=== PATIENT | male | born 1940 | race Caucasian/White ===

== ENCOUNTER 2017-01-30 21:12 | Inpatient (IN) | payer MEDICARE, BC ==
[~2017-01-30] VITALS: Ht 172.7 cm; Wt 82.3 kg
[~2017-01-30 21:12] MED LIST: LEVO500T3 PO
[2017-01-30] MEDS ORDERED: PROPOFOL 1000 MG/100 ML INJ 100 ML ONE (21:28)
[2017-01-30 21:30] VITALS: O2SAT 85
[2017-01-30] MEDS ORDERED: PROPOFOL 1000 MG/100 ML INJ 100 ML IV SCH (21:30)
[2017-01-30] MEDS ORDERED: SODIUM CHLOR 0.9% 1000 ML INJ 1,000 ML IV SCH (21:30)
[2017-01-30] MEDS ORDERED: LEVO75TA3 PO (21:34)
[2017-01-30] MEDS ORDERED: LORA-373 PO ×2 (21:34→21:35)
[2017-01-30] MEDS ORDERED: LAMO200T PO (21:34)
[2017-01-30 21:36] VITALS: BP 144/89; PULSE 82; RESP 18; TEMP 97.5; O2SAT 97
[2017-01-30] MEDS ORDERED: HYDR-755 PO (21:38)
[2017-01-30] MEDS ORDERED: ASPI81CH37 CHEW (21:38)
[2017-01-30] MEDS ORDERED: LOVA20TA PO (21:38)
[2017-01-30] MEDS ORDERED: TRIH2 PO (21:39)
[2017-01-30] MEDS ORDERED: MEMA1TAB2 PO (21:44)
[2017-01-30] MEDS ORDERED: CITA20TA4 PO (21:44)
[2017-01-30] MEDS ORDERED: RANI150C PO (21:44)
[2017-01-30] MEDS ORDERED: BENZ1TAB PO (21:44)
[2017-01-30] MEDS ORDERED: SULF1TAB23 PO (21:45)
--- NOTE | 2017-01-30 21:48 | PD ---
HPI Chief Complaint: Respiratory Distress Time Seen by Provider: 21:26 Travel History International Travel<30 days: No Contact w/Intl Traveler<30days: No Traveled to known affect area: No History of Present Illness HPI This 76-year-old male is brought from home by the back. His called for paramedics because he was hard to waken up and he seemed confused at home. He is bedbound. He has a history of multiple strokes. He has had cardiac bypass surgery. He says he has not been eating well the last couple of days. She had to force him to eat tonight. He took a nap and when she went to wake him he was hard to arouse. She called for paramedics. Paramedics reported that he was quite lethargic and had a Mildred Coma Scale 3. They initiated assisted ventilations en route to the hospital. His is here and she has power of energy attorney. Paramedics report he had a right gaze preference when they picked him up. He has a history of dementia and Parkinson's disease. The family says he has shell shock from [place] [facility] Social History Alcohol Use: No Tobacco Use: No Substance Use: No Allergies-Medications (Allergen,Severity, Reaction): Coded Allergies: No Known Allergies (Unverified , 01/30/17) Reported Meds & Prescriptions Reported Meds & Active Scripts Active Reported Sulfamethoxazole-Trimethoprim 800-160 Mg Tab 1 Tab PO BID Benztropine (Benztropine Mesylate) 1 Mg Tab 1 Mg PO TID Ranitidine (Ranitidine HCl) 150 Mg Cap 150 Mg PO DAILY Citalopram (Citalopram Hydrobromide) 20 Mg Tab 20 Mg PO DAILY Memantine 10 Mg Tab 10 Mg PO DAILY Trihexyphenidyl (Trihexyphenidyl HCl) 2 Mg Tab 4 Mg PO BID Hydroxyzine HCl 10 Mg Tab 10 Mg PO HS PRN Aspirin Low Dose (Aspirin) 81 Mg Chew 81 Mg CHEW DAILY Lovastatin 20 Mg Tab 10 Mg PO DAILY Lorazepam 0.5 Mg Tab 0.15 Mg PO HS PRN Lorazepam 0.5 Mg Tab 0.1 Mg PO BID PRN Levothyroxine (Levothyroxine Sodium) 75 Mcg Tab 75 Mcg PO DAILY Lamotrigine 200 Mg Tab 200 Mg PO BID Review of Systems ROS Limitations: Intubated, Altered Mental Status, Poor Historian Physical Exam Narrative GENERAL: Thin cachectic male SKIN: Warm and dry. HEAD: Atraumatic. Normocephalic. EYES: Pupils equal and round. No scleral icterus. No injection or drainage. ENT: No nasal bleeding or discharge. Mucous membranes pink and moist. NECK: Trachea midline. No JVD. CARDIOVASCULAR: Regular rate and rhythm. No murmur appreciated. Median sternotomy is well-healed RESPIRATORY: No accessory muscle use. Clear to auscultation. Breath sounds with scattered rhonchi bilaterally GASTROINTESTINAL: Abdomen soft, non-tender, nondistended. Hepatic and splenic margins not palpable. MUSCULOSKELETAL: No obvious deformities. No clubbing. No cyanosis. No edema. NEUROLOGICAL: Unresponsive. Minimal response to painful stimuli PSYCHIATRIC: Not testable Data Data Last Documented VS Vital Signs Date Time Temp Pulse Resp B/P Pulse Ox O2 Delivery O2 Flow Rate FiO2 01/30/17 23:20 79 14 125/84 97 Ventilator 50 01/30/17 21:36 97.5 Orders Propofol 1000 Mg/100 Ml Inj (Diprivan 10 (01/30/17 21:28) Electrocardiogram (01/30/17 21:) Complete Blood Count With Diff (01/30/17 21:26) Comprehensive Metabolic Panel (01/30/17 21:) Troponin I (01/30/17 21:) B-Type Natriuretic Peptide (01/30/17:) Prothrombin Time / Inr (Pt) (01/30/17:) Act Partial Throm Time (Ptt) (01/30/17 21:26) Blood Culture (01/30/17:) Urinalysis - C+S If Indicated (01/30/17:) Magnesium (Mg) (01/30/17 21:) Thyroid Stimulating Hormone (01/30/17 21:) Influenzae A/B Antigen (01/30/17 21:) Chest, Single Ap (01/30/17 21:26) Propofol 1000 Mg/100 Ml Inj (Diprivan 10 (01/30/17 21:30) ^ Infusion (01/30/17 21:26) RASS (01/30/17 21:26) Neurological Rass Scale CHARLENE.Q2H (01/30/17 21:26) Sodium Chlor 0.9% 1000 Ml Inj (Ns 1000 M (01/30/17 21:30) Ct Brain W/O Iv Contrast(Rout) (01/30/17 21:36) Arterial Blood Gas (Abg) (01/30/17 21:50) Urinary Catheter Insert/Apply (01/30/17 22:36) Ng Gastric Tube Insert/Monitor (01/30/17 22:36) Urine Culture (01/30/17 22:15) Ceftriaxone Inj (Rocephin Inj) (01/30/17 23:45) Labs Laboratory Tests Test 01/30/17 01/30/17 01/30/17 21:50 22:00 22:15 Blood Gas Puncture Site LT FEMORAL Blood Gas Patient Temperature 98.6 Blood Gas HCO3 18 mmol/L Blood Gas Base Excess -6.9 mmol/L Blood Gas Oxygen Saturation 98 % Arterial Blood pH 7.34 Arterial Blood Partial 34 mmHG Pressure CO2 Arterial Blood Partial 336 mmHG Pressure O2 Arterial Blood Oxygen Content 17.9 Vol % Arterial Blood 0.9 % Carboxyhemoglobin Arterial Blood Methemoglobin 1.3 % Blood Gas Hemoglobin 12.5 G/DL Oxygen Delivery Device VENTILATOR Blood Gas Ventilator Setting AC/14/500/5PEEP Blood Gas Inspired Oxygen 100 % White Blood Count 11.3 TH/MM3 Red Blood Count 4.19 MIL/MM3 Hemoglobin 12.8 GM/DL Hematocrit 38.3 % Mean Corpuscular Volume 91.5 FL Mean Corpuscular Hemoglobin 30.6 PG Mean Corpuscular Hemoglobin 33.4 % Concent Red Cell Distribution Width 12.9 % Platelet Count 176 TH/MM3 Mean Platelet Volume 9.1 FL Neutrophils (%) (Auto) 80.8 % Lymphocytes (%) (Auto) 7.9 % Monocytes (%) (Auto) 7.7 % Eosinophils (%) (Auto) 3.0 % Basophils (%) (Auto) 0.6 % Neutrophils # (Auto) 9.1 TH/MM3 Lymphocytes # (Auto) 0.9 TH/MM3 Monocytes # (Auto) 0.9 TH/MM3 Eosinophils # (Auto) 0.3 TH/MM3 Basophils # (Auto) 0.1 TH/MM3 CBC Comment DIFF FINAL Differential Comment Prothrombin Time 11.9 SEC Prothromb Time International 1.1 RATIO Ratio Activated Partial 29.2 SEC Thromboplast Time Sodium Level 155 MEQ/L Potassium Level 4.5 MEQ/L Chloride Level 124 MEQ/L Carbon Dioxide Level 21.7 MEQ/L Anion Gap 9 MEQ/L Blood Urea Nitrogen 69 MG/DL Creatinine 2.80 MG/DL Estimat Glomerular Filtration 22 ML/MIN Rate Random Glucose 113 MG/DL Calcium Level 8.6 MG/DL Magnesium Level 2.8 MG/DL Total Bilirubin 0.5 MG/DL Aspartate Amino Transf 43 U/L (AST/SGOT) Alanine Aminotransferase 32 U/L (ALT/SGPT) Alkaline Phosphatase 69 U/L Troponin I 0.07 NG/ML Total Protein 6.6 GM/DL Albumin 3.1 GM/DL Thyroid Stimulating Hormone 0.391 uIU/ML 3rd Gen Urine Collection Type CATH Urine Color YELLOW Urine Turbidity SLIGHT Urine pH 8.5 Urine Specific [place] 1.016 Urine Protein 30 mg/dL Urine Glucose (UA) NEG mg/dL Urine Ketones NEG mg/dL Urine Occult Blood MOD Urine Nitrite NEG Urine Bilirubin NEG Urine Leukocyte Esterase LARGE Urine WBC INNUM /hpf Urine Squamous Epithelial 0-2 /hpf Cells Urine Bacteria MANY /hpf Microscopic Urinalysis Comment CULTURE INDICATED MDM Medical Decision Making Medical Screen Exam Complete: Yes Emergency Medical Condition: Yes Medical Record Reviewed: Yes Differential Diagnosis Differential includes electrolyte imbalance, pneumonia, CVA Narrative Course Patient was having minimal amount respirations on arrival. Endotracheal intubation was performed on arrival. Chest x-ray shows good position of the endotracheal tube. The lungs are clear. His sodium is 155. Urine is 68 with creatinine 2.8. Urine does show innumerable white cells. CT scan of the brain shows atrophy Diagnosis Primary Impression: Hypernatremia Additional Impressions: Respiratory failure Qualified Code: J96.01 - Acute respiratory failure with hypoxia UTI (urinary tract infection) Qualified Code: N30.00 - Acute cystitis without hematuria Admitting Information Admitting Physician Requests: Admit Dmitriy Woo MD Jan 30, 2017 21:48
[2017-01-30 22:11] LABS: BLOOD GAS BASE EXCESS -6.9 mmol/L (-2-2); BLOOD GAS CARBOXYHEMOGLOBIN 0.9 % (0-4); BLOOD GAS HCO3 18 mmol/L (22-26); BLOOD GAS METHEMOGLOBIN 1.3 % (0-2); BLOOD GAS O2 HGB SATURATION 98 % (90-100); BLOOD GAS OXYGEN CONTENT 17.9 Vol % (12.0-20.0); BLOOD GAS PCO2 34 mmHG (38-42); BLOOD GAS PO2 336 mmHG (61-120); BLOOD GAS TOTAL HGB 12.5 G/DL (12.0-16.0); CRITICAL VALUE NO; FIO2 100 %; OXYGEN DEVICE VENTILATOR; TEMP CORR TO 98.6; VENT SETTINGS AC/14/500/5PEEP
[2017-01-30 22:12] LABS: DRAW SITE LT FEMORAL; NUMBER OF ARTERIAL PUNCTURES 1; STAT NO
[2017-01-30 22:15] VITALS: O2SAT 100
[2017-01-30 22:24] LABS: AUTOMATED NEUTROPHIL # 9.1 TH/MM3 (1.8-7.7); BASOPHIL # 0.1 TH/MM3 (0-0.2); BASOPHIL % 0.6 % (0.0-2.0); EOSINOPHIL # 0.3 TH/MM3 (0-0.4); HEMATOCRIT 38.3 % (39.0-51.0); LYMPH % 7.9 % (9.0-44.0); LYMPHOCYTE # 0.9 TH/MM3 (1.0-4.8); MEAN CELL VOLUME 91.5 FL (80.0-100.0); MEAN CORPUSCULAR HEMOGLOBIN 30.6 PG (27.0-34.0); MEAN CORPUSCULAR HGB CONC 33.4 % (32.0-36.0); MONO % 7.7 % (0.0-8.0); NEUT % 80.8 % (16.0-70.0); PLATELET COUNT 176 TH/MM3 (150-450); RED BLOOD COUNT 4.19 MIL/MM3 (4.50-5.90); RED CELL DISTRIBUTION WIDTH 12.9 % (11.6-17.2); WHITE BLOOD COUNT 11.3 TH/MM3 (4.0-11.0)
[2017-01-30 22:27] VITALS: BP 143/84; PULSE 78; RESP 14; O2SAT 97
--- NOTE | 2017-01-30 22:42 | RADHPO ---
EXAM DATE/TIME: 01/30/2017 22:04 [facility] COMPARISON: No previous studies available for comparison. INDICATIONS : Post intubation. MEDICAL HISTORY : Unobtainable SURGICAL HISTORY : Unobtainable ENCOUNTER: Initial ACUITY: 1 day PAIN SCORE: Non-responsive. LOCATION: Bilateral chest FINDINGS: No infiltrate, effusion or pneumothorax demonstrated. Heart size within normal limits. Patient is int ubated. Endotracheal tube tip is approximately 3 cm above the madina. Nonspecific gastric distention seen of the stomach. CONCLUSION: Appropriate position of the endotracheal tube. Lungs are clear. Stomach is distended. Gerald Perez MD on January 30, 2017 at 22:40 Board Certified Radiologist. This report was verified electronically.
[2017-01-30 22:55] LABS: HEMO FLAGS DIFF FINAL
[2017-01-30 22:57] LABS: CHLORIDE 124 MEQ/L (98-107); POTASSIUM 4.5 MEQ/L (3.5-5.1); SODIUM (NA) 155 MEQ/L (136-145)
[2017-01-30 23:00] VITALS: O2SAT 100
[2017-01-30 23:00] LABS: ANION GAP 9 MEQ/L (5-15); BICARBONATE 21.7 MEQ/L (21.0-32.0); MAGNESIUM 2.8 MG/DL (1.5-2.5)
[2017-01-30 23:01] LABS: BLOOD UREA NITROGEN 69 MG/DL (7-18)
[2017-01-30 23:02] LABS: APTT (PATIENT) 29.2 SEC (24.3-30.1); INTERNATIONAL NORMALIZED RATIO 1.1 RATIO; PROTHROMBIN TIME - PATIENT 11.9 SEC (9.8-11.6)
[2017-01-30 23:03] LABS: ALT (GPT) 32 U/L (12-78); AST (GOT) 43 U/L (15-37)
[2017-01-30 23:04] LABS: GLOMERULAR FILTRATION RATE 22 ML/MIN (>89)
[2017-01-30 23:05] LABS: TOTAL BILIRUBIN ADULT 0.5 MG/DL (0.2-1.0)
[2017-01-30 23:06] LABS: ALKALINE PHOSPHATASE 69 U/L (45-117)
[2017-01-30 23:07] LABS: BLOOD, URINE MOD (NEG); GLUCOSE,URINE NEG (NEG); KETONE, URINE NEG (NEG); NITRITE,URINE NEG (NEG); PH, URINE 8.5 (5.0-8.5)
[2017-01-30 23:20] VITALS: BP 125/84; PULSE 79; RESP 14; O2SAT 97
[2017-01-30 23:20] LABS: METHOD OF COLLECTION CATH; URINE COLOR YELLOW (YELLW/STRAW)
[2017-01-30 23:21] LABS: BACTERIA, URINE MANY /hpf; WBC, URINE INNUM /hpf (0-5)
[2017-01-30 23:22] LABS: COMMENT (UR) CULTURE INDICATED; CULTURE IF INDICATED CULTURE INDICATED; SQUAMOUS EPITHELIAL CELL URINE 0-2 /hpf (0-5)
--- NOTE | 2017-01-30 23:30 | RADHPO ---
EXAM DATE/TIME: 01/30/2017 22:56 [facility] COMPARISON: No previous studies available for comparison. INDICATIONS : Altered mental status. RADIATION DOSE: 69.5 CTDIvol (mGy) MEDICAL HISTORY : None SURGICAL HISTORY : None. ENCOUNTER: Initial ACUITY: 1 day PAIN SCALE: 0/10 LOCATION: cranial TECHNIQUE: Multiple contiguous axial images were obtained of the head. Using automated exposure control and adj ustment of the mA and/or kV according to patient size, radiation dose was kept as low as reasonably a chievable to obtain optimal diagnostic quality images. FINDINGS: CEREBRUM: The ventricles, sulci, and basal cisterns are prominent, characteristic of moderate severity central cortical atrophy. No evidence of midline shift, mass lesion, hemorrhage or acute infarction. No ext ra-axial fluid collections are seen. POSTERIOR FOSSA: The cerebellum and brainstem are intact. The 4th ventricle is midline. The cerebellopontine angle i s unremarkable. EXTRACRANIAL: The visualized portion of the orbits is intact. SKULL: The calvaria is intact. No evidence of skull fracture. CONCLUSION: Moderately severe atrophy. No acute findings. Ross Giron MD on January 30, 2017 at 23:27 Board Certified Radiologist. This report was verified electronically.
[2017-01-30] MEDS ORDERED: cefTRIAXone INJ 1,000 MG in SODIUM CHLORIDE 0.9% INJ 100 ML IV ONE (23:45)
[2017-01-31] VITALS (22 sets, daily range): BP systolic 107–142; BP diastolic 61–83; PULSE 59–84; RESP 12–29; TEMP 96.2–98.1; O2SAT 0–100
[2017-01-31] MEDS ORDERED: PROPOFOL 1000 MG/100 ML INJ 100 ML IV SCH (00:30)
[2017-01-31] MEDS ORDERED: SODIUM CHLORIDE 0.9% FLUSH 5 ML FLUSH IV FLUSH PRN (00:30)
[2017-01-31] MEDS ORDERED: BISACODYL EC 5 MG TABEC PO PRN (00:30)
[2017-01-31] MEDS ORDERED: ONDANSETRON HCL 4 MG/2 ML VIAL IV PRN (00:30)
[2017-01-31] MEDS ORDERED: ACETAMINOPHEN 325 MG TAB PO PRN (00:30)
[2017-01-31] MEDS ORDERED: CHLORHEXIDINE GLUCONATE 2 % 1 PACK (2 CLOTHS) TOP PRN (00:30)
[2017-01-31] MEDS ORDERED: MISCELLANEOUS NURSING INFORMATION XX SCH (00:30)
[2017-01-31] MEDS: LACTATED RINGER'S 1000 ML INJ 1,000 ML IV SCH ×3 (01:28→17:46)
[2017-01-31] MEDS: CEFEPIME INJ 2,000 MG in SODIUM CHLORIDE 0.9% INJ 100 ML IV SCH (01:28)
[2017-01-31] MEDS: RESP: ALBUTEROL 2.5 MG/IPRATROPIUM 0.5 MG NEB (SCH) INH ×4 (03:48→20:50)
[2017-01-31] MEDS: CHLORHEXIDINE GLUCONATE 2 % 1 PACK (2 CLOTHS) TOP SCH (04:00)
[2017-01-31 04:34] LABS: MAGNESIUM 2.7 MG/DL (1.5-2.5)
[2017-01-31] MEDS: SODIUM CHLORIDE 0.9% FLUSH 5 ML FLUSH IV FLUSH SCH ×2 (09:00→21:44)
[2017-01-31] MEDS: CHLORHEXIDINE 0.12% (ORAL KIT) 15 ML CUP MT SCH ×2 (09:08→20:00)
[2017-01-31] MEDS: DOCUSATE SODIUM 100 MG/10 ML UDC TUBE SCH ×2 (09:09→21:43)
[2017-01-31] MEDS: PANTOPRAZOLE SODIUM 40 MG VIAL IV SCH (09:10)
--- NOTE | 2017-01-31 14:38 | EKG ---
Date Performed: 01/30/2017 Time Performed: 21:34:04 PTAGE: 76 years EKG: Sinus rhythm Small inferior Q waves of undetermined significance Otherwise within normal limits NO PREVIOUS TRACING DOCTOR: Henrry Corcoran Interpretating Date/Time 01/31/2017 14:36:46
--- NOTE | 2017-01-31 15:48 | HHI.HP ---
HPI Service Critical Care Medicine Primary Care Physician No Primary Care Physician Admission Diagnosis respiratory failure, altered mental status Diagnosis: Travel History International Travel<30 Days: No Contact w/Intl Traveler <30 Da: No Traveled to Known Affected Are: No History of Present Illness 76-year-old male is brought by paramedics because he was hard to waken up and he seemed confused at home. He is bedbound. He has a history of multiple strokes, cardiac bypass surgery. Patient's says he has not been eating well the last couple of days. After the afternoon nap he was hard to arouse. She called for paramedics. Paramedics reported that he was quite lethargic. He has a history of dementia and Parkinson's disease. Review of Systems ROS Unable to obtain patient is sedated and intubated Past Family Social History Allergies: Coded Allergies: No Known Allergies (Unverified , 01/30/17) Past Medical History Hypothyroidism Parkinson's disease Posttraumatic stress disorder Dementia Past Surgical History Unable to obtain patient is intubated Reported Medications Reported Meds & Active Scripts Active Reported Sulfamethoxazole-Trimethoprim 800-160 Mg Tab 1 Tab PO BID Benztropine (Benztropine Mesylate) 1 Mg Tab 1 Mg PO TID Ranitidine (Ranitidine HCl) 150 Mg Cap 150 Mg PO DAILY Citalopram (Citalopram Hydrobromide) 20 Mg Tab 20 Mg PO DAILY Memantine 10 Mg Tab 10 Mg PO DAILY Trihexyphenidyl (Trihexyphenidyl HCl) 2 Mg Tab 4 Mg PO BID Hydroxyzine HCl 10 Mg Tab 10 Mg PO HS PRN Aspirin Low Dose (Aspirin) 81 Mg Chew 81 Mg CHEW DAILY Lovastatin 20 Mg Tab 10 Mg PO DAILY Lorazepam 0.5 Mg Tab 0.15 Mg PO HS PRN Lorazepam 0.5 Mg Tab 0.1 Mg PO BID PRN Levothyroxine (Levothyroxine Sodium) 75 Mcg Tab 75 Mcg PO DAILY Lamotrigine 200 Mg Tab 200 Mg PO BID Active Ordered Medications Current Medications Medications (Trade) Dose Ordered Sig/Russel Route PRN Reason Start Time Stop Time Status Last Admin Dose Admin IV Flush (NS Flush) 2 ml UNSCH PRN IV FLUSH FLUSH AFTER USING IV ACCESS 01/31/17 00:30 IV Flush (NS Flush) 2 ml BID IV FLUSH 01/31/17 09:00 Acetaminophen (Tylenol) 650 mg Q6H PRN PO PAIN 1-10 AND/OR FEVER >101F 01/31/17 00:30 Pantoprazole Sodium (Protonix Inj) 40 mg DAILY IV 01/31/17 09:00 01/31/17 09:10 Ondansetron HCl (Zofran Inj) 4 mg Q6H PRN IV NAUSEA OR VOMITING 01/31/17 00:30 Docusate Sodium (Colace Liq) 100 mg BID TUBE 01/31/17 09:00 01/31/17 09:09 Bisacodyl (Dulcolax Ec) 10 mg DAILY PRN PO CONSTIPATION 01/31/17 00:30 Miscellaneous Information 1 Q361D XX 01/31/17 00:30 Chlorhexidine Gluconate (Chlorhexidine 2% Cloth) 3 pack Taper DAILY@04 TOP 01/31/17 04:00 01/27/18 03:59 Chlorhexidine Gluconate 3 pack 3 pack UNSCH PRN TOP HYGIENIC CARE 01/31/17 00:30 Lactated Ringer's (Lr 1000 ml Inj) 1,000 ml @ 125 mls/hr Q8H IV 01/31/17 01:00 01/31/17 09:11 Chlorhexidine Gluconate 15 ml 15 ml BID@08,20 MT 01/31/17 08:00 01/31/17 09:08 Propofol 100 ml @ 0 mls/hr TITRATE IV 01/31/17 00:30 01/31/17 04:33 Cefepime HCl/ Sodium Chloride (Maxipime Inj/NS Inj) 100 ml @ 200 mls/hr Q24H IV 01/31/17 01:00 01/31/17 01:28 Family History Noncontributory Social History Negative 3 Physical Exam Vital Signs Vital Signs Date Time Temp Pulse Resp B/P Pulse Ox O2 Delivery O2 Flow Rate FiO2 01/31/17 12:35 72 01/31/17 12:35 98.0 72 29 142/79 100 01/31/17 12:28 100 Nasal Cannula 4 01/31/17 11:55 100 40 01/31/17 10:30 59 01/31/17 09:23 100 40 01/31/17 08:00 96.2 65 12 107/61 100 01/31/17 08:00 65 01/31/17 06:50 0 50 01/31/17 06:03 64 12 98 Ventilator 50 01/31/17 05:32 64 12 130/75 98 50 01/31/17 04:18 64 12 135/76 98 50 01/31/17 03:17 64 12 128/75 98 50 01/31/17 02:48 50 01/31/17 02:45 100 50 01/31/17 02:27 64 14 122/83 98 50 01/31/17 02:00 100 50 01/31/17 01:35 63 14 135/73 98 50 01/31/17 00:27 69 14 119/77 98 50 01/30/17 23:20 79 14 125/84 97 Ventilator 50 01/30/17 23:00 100 100 01/30/17 22:27 78 14 143/84 97 Ventilator 50 01/30/17 22:15 100 50 01/30/17 21:43 82 18 Bag Valve 100 01/30/17 21:41 100 01/30/17 21:36 97.5 82 18 144/89 97 01/30/17 21:30 85 100 Physical Exam GENERAL: Malnourished elderly male, very cachectic SKIN: Warm and dry. HEAD: Normocephalic. EYES: No scleral icterus. No injection or drainage. NECK: Supple, trachea midline. No JVD or lymphadenopathy. CARDIOVASCULAR: Regular rate and rhythm without murmurs, gallops, or rubs. RESPIRATORY: Breath sounds equal bilaterally. No accessory muscle use. GASTROINTESTINAL: Abdomen soft, non-tender, nondistended. MUSCULOSKELETAL: No cyanosis, or edema. BACK: Nontender without obvious deformity. No CVA tenderness. EXTREMITIES: No edema clubbing or cyanosis Laboratory Laboratory Tests Test 01/30/17 01/30/17 01/30/17 01/31/17 21:50 22:00 22:15 03:45 Blood Gas Puncture Site LT FEMORAL Blood Gas Patient Temperature 98.6 Blood Gas HCO3 18 Blood Gas Base Excess -6.9 Blood Gas Oxygen Saturation 98 Arterial Blood pH 7.34 Arterial Blood Partial 34 Pressure CO2 Arterial Blood Partial 336 Pressure O2 Arterial Blood Oxygen Content 17.9 Arterial Blood 0.9 Carboxyhemoglobin Arterial Blood Methemoglobin 1.3 Blood Gas Hemoglobin 12.5 Oxygen Delivery Device VENTILATOR Blood Gas Ventilator Setting AC/14/500/5PEEP Blood Gas Inspired Oxygen 100 Prothrombin Time 11.9 Prothromb Time International 1.1 Ratio Activated Partial 29.2 Thromboplast Time Sodium Level 155 Potassium Level 4.5 Chloride Level 124 Carbon Dioxide Level 21.7 Anion Gap 9 Blood Urea Nitrogen 69 Creatinine 2.80 Estimat Glomerular Filtration 22 Rate Random Glucose 113 Calcium Level 8.6 Magnesium Level 2.8 2.7 Total Bilirubin 0.5 Aspartate Amino Transf 43 (AST/SGOT) Alanine Aminotransferase 32 (ALT/SGPT) Alkaline Phosphatase 69 Troponin I 0.07 0.05 B-Type Natriuretic Peptide 64 Total Protein 6.6 Albumin 3.1 Thyroid Stimulating Hormone 0.391 3rd Gen White Blood Count 11.3 Red Blood Count 4.19 Hemoglobin 12.8 Hematocrit 38.3 Mean Corpuscular Volume 91.5 Mean Corpuscular Hemoglobin 30.6 Mean Corpuscular Hemoglobin 33.4 Concent Red Cell Distribution Width 12.9 Platelet Count 176 Mean Platelet Volume 9.1 Neutrophils (%) (Auto) 80.8 Lymphocytes (%) (Auto) 7.9 Monocytes (%) (Auto) 7.7 Eosinophils (%) (Auto) 3.0 Basophils (%) (Auto) 0.6 Neutrophils # (Auto) 9.1 Lymphocytes # (Auto) 0.9 Monocytes # (Auto) 0.9 Eosinophils # (Auto) 0.3 Basophils # (Auto) 0.1 CBC Comment DIFF FINAL Differential Comment Urine Collection Type CATH Urine Color YELLOW Urine Turbidity SLIGHT Urine pH 8.5 Urine Specific [place] 1.016 Urine Protein 30 Urine Glucose (UA) NEG Urine Ketones NEG Urine Occult Blood MOD Urine Nitrite NEG Urine Bilirubin NEG Urine Leukocyte Esterase LARGE Urine WBC INNUM Urine Squamous Epithelial 0-2 Cells Urine Bacteria MANY Microscopic Urinalysis Comment CULTURE INDICATED Test 01/31/17 01/31/17 06:45 10:31 Nasal Screen MRSA (PCR) NEGATIVE Troponin I 0.04 Date/Time Procedure Status Source Growth 01/30/17 22:15 Urine Culture - Preliminary Resulted Urine Catheterized Urine Gram Negative Raul 01/30/17 22:05 Aerobic Blood Culture - Preliminary Resulted Blood Peripheral NO GROWTH IN 1 DAY 01/30/17 22:05 Anaerobic Blood Culture - Preliminary Resulted Blood Peripheral NO GROWTH IN 1 DAY 01/30/17 22:00 Influenza Types A,B Antigen ([place]) - Final Complete Nasal Aspirate NEGATIVE FOR FLU A AND B ANTIGEN.... 01/30/17 21:26 Aerobic Blood Culture Received Blood Peripheral Pending 01/30/17 21:26 Anaerobic Blood Culture Received Blood Peripheral Pending Result Diagram: 01/30/17219901/30/172199 Imaging Last [address] 01/30/172135 Signed Impressions: Service Date/Time: Monday, January 30, 2017 22:56 - CONCLUSION: Moderately severe atrophy. No acute findings. Ross Giron MD Chest X-Ray 01/30/172125 Signed Impressions: Service Date/Time: Monday, January 30, 2017 22:04 - CONCLUSION: Appropriate position of the endotracheal tube. Lungs are clear. Stomach is distended. Gerald Perez MD Assessment and Plan Problem List: (1) Hypernatremia ICD Code: E87.0 Status: Acute (2) Respiratory failure ICD Code: J96.90 Status: Acute (3) UTI (urinary tract infection) ICD Code: N39.0 Status: Acute Assessment and Plan Altered mental status - Metabolic toxic encephalopathy - Dehydration - Hyponatremia - Possible UTI - Treat underlying condition - IV fluids resuscitation - CT head negative - Neuro checks per unit protocol - Neuro exam is nonfocal - stroke less likely - Resume home dose of Lamictal and Namenda Hyponatremia - Volume depleted - IV fluids resuscitation UTI - Rocephin 3 days - Follow-up culture and sensitivity Hypothyroidism - Synthroid DVT GI prophylaxis - Heparin and Pepcid Critical Care: The total critical care time was 35 minutes. Time to perform other separately billable procedures was not included in the critical care time. Problem Qualifiers (1) Respiratory failure: Qualified Code: J96.01 - Acute respiratory failure with hypoxia (2) UTI (urinary tract infection): Qualified Code: N30.00 - Acute cystitis without hematuria Chip Acharya MD Jan 31, 2017 15:48
[2017-01-31] MEDS: FAMOTIDINE 20 MG/2 ML VIAL IV PUSH SCH (17:44)
[2017-01-31] MEDS: BENZTROPINE MESYLATE 1 MG TAB PO SCH (17:54)
[2017-01-31] MEDS: lamoTRIgine 100 MG TAB PO SCH (21:43)
[2017-01-31] MEDS: HEPARIN SODIUM - SQ 10,000 UNITS/ML VIAL SQ SCH (21:43)
[2017-01-31] MEDS: TRIHEXYPHENIDYL HCL 2 MG TAB PO SCH (21:43)
[2017-01-31] MEDS: hydrOXYzine HCL 10 MG TAB PO PRN (21:50)
[2017-02-01] VITALS (16 sets, daily range): BP systolic 114–132; BP diastolic 56–77; PULSE 63–87; RESP 21–26; TEMP 97.5–98.4; O2SAT 96–99
[2017-02-01] MEDS: CHLORHEXIDINE GLUCONATE 2 % 1 PACK (2 CLOTHS) TOP SCH (01:10)
[2017-02-01] MEDS: CEFEPIME INJ 2,000 MG in SODIUM CHLORIDE 0.9% INJ 100 ML IV SCH (01:10)
[2017-02-01] MEDS: LACTATED RINGER'S 1000 ML INJ 1,000 ML IV SCH ×2 (01:16→08:23)
[2017-02-01] MEDS: FAMOTIDINE 20 MG/2 ML VIAL IV PUSH SCH ×2 (01:57→15:18)
[2017-02-01] MEDS: RESP: ALBUTEROL 2.5 MG/IPRATROPIUM 0.5 MG NEB (SCH) INH ×4 (03:42→21:04)
[2017-02-01 04:05] LABS: ALKALINE PHOSPHATASE 58 U/L (45-117); ALT (GPT) 29 U/L (12-78); ANION GAP 8 MEQ/L (5-15); AST (GOT) 54 U/L (15-37); BICARBONATE 23.5 MEQ/L (21.0-32.0); BLOOD UREA NITROGEN 44 MG/DL (7-18); CHLORIDE 130 MEQ/L (98-107); GLOMERULAR FILTRATION RATE 33 ML/MIN (>89); MAGNESIUM 2.5 MG/DL (1.5-2.5); POTASSIUM 4.2 MEQ/L (3.5-5.1); TOTAL BILIRUBIN ADULT 0.3 MG/DL (0.2-1.0)
[2017-02-01 04:08] LABS: SODIUM (NA) 161 MEQ/L (136-145)
[2017-02-01 04:09] LABS: HEMATOCRIT 31.6 % (39.0-51.0); MEAN CELL VOLUME 92.6 FL (80.0-100.0); MEAN CORPUSCULAR HEMOGLOBIN 30.8 PG (27.0-34.0); MEAN CORPUSCULAR HGB CONC 33.3 % (32.0-36.0); PLATELET COUNT 133 TH/MM3 (150-450); RED BLOOD COUNT 3.41 MIL/MM3 (4.50-5.90); RED CELL DISTRIBUTION WIDTH 14.3 % (11.6-17.2); WHITE BLOOD COUNT 8.9 TH/MM3 (4.0-11.0)
[2017-02-01 04:16] LABS: HEMO FLAGS AUTO DIFF
[2017-02-01] MEDS: LEVOTHYROXINE SODIUM 75 MCG TAB PO SCH (04:59)
[2017-02-01 05:05] LABS: BANDS 3 % (0-6); BASOPHILS 1 % (0-2); EOSINOPHILS 4 % (0-4); NEUTROPHIL # MANUAL DIFF 7.1 TH/MM3 (1.8-7.7); POLYS (SEG NEUTROPHILS) 77 % (16-70); WBC DIFF SAMPLE 100
[2017-02-01 05:06] LABS: OVALOCYTES 1+ (NORMAL); PLATELET ESTIMATE SMEAR LOW (NORMAL); PLATELET MORPHOLOGY NORMAL (NORMAL); SCAN/DIFF FINAL DIFF MANUAL
[2017-02-01 05:48] LABS: BLOOD GAS BASE EXCESS -4.8 mmol/L (-2-2); BLOOD GAS CARBOXYHEMOGLOBIN 0.8 % (0-4); BLOOD GAS HCO3 20 mmol/L (22-26); BLOOD GAS METHEMOGLOBIN 1.3 % (0-2); BLOOD GAS O2 HGB SATURATION 97 % (90-100); BLOOD GAS OXYGEN CONTENT 14.7 Vol % (12.0-20.0); BLOOD GAS PCO2 38 mmHg (38-42); BLOOD GAS PO2 177 mmHg (61-120); BLOOD GAS TOTAL HGB 10.5 G/DL (12.0-16.0); CRITICAL VALUE NO; OXYGEN DEVICE NASAL CANNULA; TEMP CORR TO 98.6
[2017-02-01 05:49] LABS: DRAW SITE RT RADIAL; FIO2 36 %; LITER FLOW 4 L/M; NUMBER OF ARTERIAL PUNCTURES 1; STAT NO; ULNAR PULSE PRESENT
[2017-02-01] MEDS: CHLORHEXIDINE 0.12% (ORAL KIT) 15 ML CUP MT SCH ×2 (08:00→20:00)
[2017-02-01] MEDS: ASPIRIN 81 MG CHEW TAB CHEW SCH (08:22)
[2017-02-01] MEDS: PANTOPRAZOLE SODIUM 40 MG VIAL IV SCH (08:23)
[2017-02-01] MEDS: SODIUM CHLORIDE 0.9% FLUSH 5 ML FLUSH IV FLUSH SCH ×2 (08:25→22:54)
[2017-02-01] MEDS: TRIHEXYPHENIDYL HCL 2 MG TAB PO SCH ×2 (08:26→22:54)
[2017-02-01] MEDS: CITALOPRAM HYDROBROMIDE 20 MG TAB PO SCH (08:27)
[2017-02-01] MEDS: lamoTRIgine 100 MG TAB PO SCH ×2 (08:28→22:53)
[2017-02-01] MEDS: BENZTROPINE MESYLATE 1 MG TAB PO SCH ×3 (08:30→17:56)
[2017-02-01] MEDS: MEMANTINE HCL 10 MG TAB PO SCH (08:30)
[2017-02-01] MEDS: PRAVASTATIN SOD 10 MG TAB PO SCH (08:31)
[2017-02-01] MEDS: DOCUSATE SODIUM 100 MG/10 ML UDC TUBE SCH ×2 (08:32→22:53)
[2017-02-01] MEDS: HEPARIN SODIUM - SQ 10,000 UNITS/ML VIAL SQ SCH ×2 (08:33→22:54)
[2017-02-01] MEDS ORDERED: NON-FORMULARY DRUG (Ranitidine 150 MG) PO SCH (09:00)
--- NOTE | 2017-02-01 09:12 | HHI.PR ---
Subjective Remarks resting comfortably with no distress. awake but confused. no fever. noted that was on restraints. d/w the RN and other than occasional anxiety episodes, no other acute issues over night. Objective Vitals Vital Signs Date Time Temp Pulse Resp B/P Pulse Ox O2 Delivery O2 Flow Rate FiO2 02/01/17 06:00 76 02/01/17 04:00 97.5 87 26 122/61 97 02/01/17 04:00 87 02/01/17 03:00 74 02/01/17 00:00 98.3 75 26 126/57 99 02/01/17 00:00 75 01/31/17 22:00 83 01/31/17 20:53 99 Nasal Cannula 4.00 01/31/17 20:00 98.1 65 28 129/65 100 01/31/17 20:00 65 01/31/17 19:00 99 Nasal Cannula 4.00 01/31/17 18:09 73 01/31/17 16:09 80 01/31/17 16:00 98.1 84 28 136/63 100 01/31/17 14:00 66 01/31/17 12:35 72 01/31/17 12:35 98.0 72 29 142/79 100 01/31/17 12:30 99 Nasal Cannula 4.00 01/31/17 12:28 100 Nasal Cannula 4 01/31/17 11:55 100 40 01/31/17 10:30 35 01/31/17 10:30 59 01/31/17 09:23 100 40 I/O 01/31/17 01/31/17 01/31/17 02/01/17 02/01/17 02/01/17 07:00 15:00 23:00 07:00 15:00 23:00 Intake Total 1060 ml 801 ml 720 ml Output Total 875 ml 650 ml 400 ml Balance 185 ml 151 ml 320 ml Intake IV Total 1060 ml 801 ml 720 ml Output Urine Total 875 ml 650 ml 400 ml Result Diagram: 02/01/1732002/01/17320 Imaging Last Impressions Head CT 01/30/172135 Signed Impressions: Service Date/Time: Monday, January 30, 2017 22:56 - CONCLUSION: Moderately severe atrophy. No acute findings. Ross Giron MD Chest X-Ray 01/30/172125 Signed Impressions: Service Date/Time: Monday, January 30, 2017 22:04 - CONCLUSION: Appropriate position of the endotracheal tube. Lungs are clear. Stomach is distended. Gerald Perez MD Objective Remarks GENERAL: This is a well-nourished, well-developed patient, in no apparent distress. CARDIOVASCULAR: Regular rate and regular rhythm without murmurs, gallops, or rubs. RESPIRATORY: Clear to auscultation. Breath sounds equal bilaterally. No wheezes , rales, or rhonchi. GASTROINTESTINAL: Abdomen soft, non-tender, nondistended. Normal, active bowel sounds MUSCULOSKELETAL: Extremities without clubbing, cyanosis, or edema. NEURO: awake but confused Procedures intubation Medications and IVs Current Medications Propofol 100 ml @ As Directed STK-MED ONCE .ROUTE ; Start 01/30/17 at 21:28; Stop 01/30/17 at 21:29; Status DC Propofol 100 ml @ 0 mls/hr TITRATE IV Last administered on 01/30/17 22:27; Start 01/30/17 at 21:30; Stop 01/31/17 at 00:29; Status DC Sodium Chloride 1,000 ml @ 200 mls/hr Q5H IV Last administered on 01/30/17 22 :25; Start 01/30/17 at 21:30; Stop 01/31/17 at 00:29; Status DC Ceftriaxone Sodium/Sodium Chloride (Rocephin Inj/NS Inj) 100 ml @ 200 mls/hr ONCE ONCE IV Last administered on 01/30/17 23:42; Start 01/30/17 at 23:45; Stop 01/31/17 at 00:14; Status DC IV Flush (NS Flush) 2 ml UNSCH PRN IV FLUSH FLUSH AFTER USING IV ACCESS; Start 01/31/17 at 00:30 IV Flush (NS Flush) 2 ml BID IV FLUSH Last administered on 02/01/17 08:25; Start 01/31/17 at 09:00 Acetaminophen (Tylenol) 650 mg Q6H PRN PO PAIN 1-10 AND/OR FEVER >101F; Start 01/31/17 at 00:30 Pantoprazole Sodium (Protonix Inj) 40 mg DAILY IV Last administered on 08:23; Start 01/31/17 at 09:00 Ondansetron HCl (Zofran Inj) 4 mg Q6H PRN IV NAUSEA OR VOMITING; Start at 00:30 Docusate Sodium (Colace Liq) 100 mg BID TUBE Last administered on 02/01/17 08: 32; Start 01/31/17 at 09:00 Bisacodyl (Dulcolax Ec) 10 mg DAILY PRN PO CONSTIPATION; Start 01/31/17 at 00: 30 Albuterol/ Ipratropium (Duoneb Neb) 1 ampule Q6HR NEB INH Last administered on 02/01/17 03:42; Start 01/31/17 at 04:00 Albuterol Sulfate (Albuterol Neb) 2.5 mg Q2HR NEB PRN INH SOB/WHEEZING; Start 01/31/17 at 00:30 Miscellaneous Information 1 Q361D XX ; Start 01/31/17 at 00:30 Chlorhexidine Gluconate (Chlorhexidine 2% Cloth) 3 pack Taper DAILY@04 TOP Last administered on 02/01/17 01:10; Start 01/31/17 at 04:00; Stop 01/27/18 at 03:59 Chlorhexidine Gluconate 3 pack 3 pack UNSCH PRN TOP HYGIENIC CARE; Start at 00:30 Lactated Ringer's (Lr 1000 ml Inj) 1,000 ml @ 125 mls/hr Q8H IV Last administered on 02/01/17 08:23; Start 01/31/17 at 01:00 Chlorhexidine Gluconate 15 ml 15 ml BID@08,20 MT Last administered on 09:08; Start 01/31/17 at 08:00 Propofol 100 ml @ 0 mls/hr TITRATE IV Last administered on 01/31/17 04:33; Start 01/31/17 at 00:30 Cefepime HCl/ Sodium Chloride (Maxipime Inj/NS Inj) 100 ml @ 200 mls/hr Q24H IV Last administered on 02/01/17 01:10; Start 01/31/17 at 01:00 Aspirin (Aspirin Chew) 81 mg DAILY CHEW Last administered on 02/01/17 08:22; Start 02/01/17 at 09:00 Benztropine Mesylate (Cogentin) 1 mg TID PO Last administered on 02/01/17 08: 30; Start 01/31/17 at 18:00 Citalopram Hydrobromide (CeleXA) 20 mg DAILY PO Last administered on 02/01/17 08:27; Start 02/01/17 at 09:00 Hydroxyzine HCl (Atarax) 10 mg HS PRN PO SLEEP Last administered on 01/31/17 21:50; Start 01/31/17 at 15:30 Lamotrigine (LaMICtal) 200 mg BID PO Last administered on 02/01/17 08:28; Start 01/31/17 at 21:00 Levothyroxine Sodium (Synthroid) 75 mcg DAILY@06 PO Last administered on 04:59; Start 02/01/17 at 06:00 Pravastatin Sodium (Pravachol) 10 mg DAILY PO Last administered on 02/01/17 08 :31; Start 02/01/17 at 09:00 Memantine (Namenda) 10 mg DAILY PO Last administered on 02/01/17 08:30; Start 02/01/17 at 09:00 Trihexyphenidyl HCl (Artane) 4 mg BID PO Last administered on 02/01/17 08:26; Start 01/31/17 at 21:00 Non-Formulary Medication 150 mg DAILY PO ; Start 02/01/17 at 09:00; Stop at 09:00; Status DC Famotidine (Pepcid Inj) 10 mg Q12H IV PUSH Last administered on 02/01/17 01:57 ; Start 01/31/17 at 16:00 Heparin Sodium (Porcine) (Heparin Inj) 5,000 units Q12HR SQ Last administered on 02/01/17 08:33; Start 01/31/17 at 21:00 A/P Assessment and Plan A/P acute encephalopathy with history of parkinson's disease and dementia;- Metabolic toxic encephalopathy - Neuro checks - Neuro exam is nonfocal ; head CT with no acute abnormality - Resume home dose of Lamictal and Namenda UTI; continue Abx- will deescalate soon when cultures resulted- initial UC with gram negative alisia Hypernatremia - change the fluid to D5W- will monitor the sodium level renal insufficiency with unknown duration- improving; will continue IV fluid and monitor the renal function and electrolytes Hypothyroidism - Synthroid DVT GI prophylaxis - Heparin and Pepcid will consult PT/ST. transfer to telemetry. d/w the RN. Discharge Planning case management consulted for dc planning. Jaqui Espinoza MD Feb 01, 2017 09:12
[2017-02-01] MEDS: DEXTROSE 5% IN WATE 1000ML INJ 1,000 ML IV SCH ×2 (11:49→22:54)
[2017-02-01] MEDS: hydrOXYzine HCL 10 MG TAB PO PRN (22:54)
[2017-02-02] VITALS (15 sets, daily range): BP systolic 101–144; BP diastolic 64–73; PULSE 62–84; RESP 13–26; TEMP 95.8–98.4; O2SAT 93–98
[2017-02-02] MEDS: CEFEPIME INJ 2,000 MG in SODIUM CHLORIDE 0.9% INJ 100 ML IV SCH (01:00)
[2017-02-02] MEDS: CHLORHEXIDINE GLUCONATE 2 % 1 PACK (2 CLOTHS) TOP SCH (01:01)
[2017-02-02] MEDS: RESP: ALBUTEROL 2.5 MG/IPRATROPIUM 0.5 MG NEB (SCH) INH ×4 (04:00→21:28)
[2017-02-02] MEDS: FAMOTIDINE 20 MG/2 ML VIAL IV PUSH SCH ×2 (04:25→16:02)
[2017-02-02] MEDS: LEVOTHYROXINE SODIUM 75 MCG TAB PO SCH (04:25)
[2017-02-02 06:07] LABS: POTASSIUM 3.4 MEQ/L (3.5-5.1)
--- NOTE | 2017-02-02 07:54 | HHI.PR ---
Subjective Remarks in no acute distress. afebrile. d/w the RN and no acute issues over night. Objective Vitals Vital Signs Date Time Temp Pulse Resp B/P Pulse Ox O2 Delivery O2 Flow Rate FiO2 02/02/17 07:00 96 Nasal Cannula 2.00 02/02/17 06:00 75 02/02/17 04:00 78 02/02/17 04:00 98.1 78 26 122/66 96 02/02/17 02:00 72 02/02/17 00:00 98.1 70 24 116/67 94 02/02/17 00:00 70 02/01/17 22:00 71 02/01/17 21:04 99 Nasal Cannula 2.00 02/01/17 20:00 98.4 64 26 118/56 98 02/01/17 20:00 64 02/01/17 19:00 99 Nasal Cannula 2.00 02/01/17 18:29 73 02/01/17 16:17 98.2 63 25 129/58 98 02/01/17 16:05 72 02/01/17 14:04 66 02/01/17 12:34 98.4 72 21 114/77 98 02/01/17 12:33 74 02/01/17 10:30 75 02/01/17 10:01 96 Nasal Cannula 2.00 02/01/17 08:00 97.6 71 22 132/60 98 02/01/17 08:00 71 02/01/17 08:00 98 Nasal Cannula 2.00 I/O 02/01/17 02/01/17 02/01/17 02/02/17 02/02/17 02/02/17 07:00 15:00 23:00 07:00 15:00 23:00 Intake Total 720 ml 718 ml 783 ml 535 ml Output Total 400 ml 450 ml 601 ml 401 ml Balance 320 ml 268 ml 182 ml 134 ml Intake Oral 100 ml 50 ml IV Total 720 ml 718 ml 683 ml 485 ml Output Urine Total 400 ml 450 ml 600 ml 400 ml Stool Total 1 ml 1 ml Result Diagram: 02/01/17 0321 02/02/17 0440 Imaging Last Impressions Head CT 01/30/176 Signed Impressions: Service Date/Time: Monday, January 30, 2017 22:56 - CONCLUSION: Moderately severe atrophy. No acute findings. Ross Giron MD Chest X-Ray 01/30/172125 Signed Impressions: Service Date/Time: Monday, January 30, 2017 22:04 - CONCLUSION: Appropriate position of the endotracheal tube. Lungs are clear. Stomach is distended. Gerald Perez MD Objective Remarks GENERAL: in no apparent distress. CARDIOVASCULAR: Regular rate and regular rhythm without murmurs, gallops, or rubs. RESPIRATORY: Clear to auscultation. Breath sounds equal bilaterally. No wheezes , rales, or rhonchi. GASTROINTESTINAL: Abdomen soft, non-tender, nondistended. Normal, active bowel sounds MUSCULOSKELETAL: Extremities without clubbing, cyanosis, or edema. NEURO: awake but confused Procedures intubation Medications and IVs Current Medications Propofol 100 ml @ As Directed STK-MED ONCE .ROUTE ; Start 01/30/17 at 21:28; Stop 01/30/17 at 21:29; Status DC Propofol 100 ml @ 0 mls/hr TITRATE IV Last administered on 01/30/17 22:27; Start 01/30/17 at 21:30; Stop 01/31/17 at 00:29; Status DC Sodium Chloride 1,000 ml @ 200 mls/hr Q5H IV Last administered on 01/30/17 22 :25; Start 01/30/17 at 21:30; Stop 01/31/17 at 00:29; Status DC Ceftriaxone Sodium/Sodium Chloride (Rocephin Inj/NS Inj) 100 ml @ 200 mls/hr ONCE ONCE IV Last administered on 01/30/17 23:42; Start 01/30/17 at 23:45; Stop 01/31/17 at 00:14; Status DC IV Flush (NS Flush) 2 ml UNSCH PRN IV FLUSH FLUSH AFTER USING IV ACCESS; Start 01/31/17 at 00:30 IV Flush (NS Flush) 2 ml BID IV FLUSH Last administered on 02/01/17 22:54; Start 01/31/17 at 09:00 Acetaminophen (Tylenol) 650 mg Q6H PRN PO PAIN 1-10 AND/OR FEVER >101F; Start 01/31/17 at 00:30 Pantoprazole Sodium (Protonix Inj) 40 mg DAILY IV Last administered on 08:23; Start 01/31/17 at 09:00 Ondansetron HCl (Zofran Inj) 4 mg Q6H PRN IV NAUSEA OR VOMITING; Start at 00:30 Docusate Sodium (Colace Liq) 100 mg BID TUBE Last administered on 02/01/17 22: 53; Start 01/31/17 at 09:00 Bisacodyl (Dulcolax Ec) 10 mg DAILY PRN PO CONSTIPATION; Start 01/31/17 at 00: 30 Albuterol/ Ipratropium (Duoneb Neb) 1 ampule Q6HR NEB INH Last administered on 02/02/17 04:00; Start 01/31/17 at 04:00 Albuterol Sulfate (Albuterol Neb) 2.5 mg Q2HR NEB PRN INH SOB/WHEEZING; Start 01/31/17 at 00:30 Miscellaneous Information 1 Q361D XX ; Start 01/31/17 at 00:30 Chlorhexidine Gluconate (Chlorhexidine 2% Cloth) 3 pack Taper DAILY@04 TOP Last administered on 02/02/17 01:01; Start 01/31/17 at 04:00; Stop 01/27/18 at 03:59 Chlorhexidine Gluconate 3 pack 3 pack UNSCH PRN TOP HYGIENIC CARE; Start at 00:30 Lactated Ringer's (Lr 1000 ml Inj) 1,000 ml @ 125 mls/hr Q8H IV Last administered on 02/01/17 08:23; Start 01/31/17 at 01:00; Stop 02/01/17 at 09:07 ; Status DC Chlorhexidine Gluconate 15 ml 15 ml BID@08,20 MT Last administered on 09:08; Start 01/31/17 at 08:00 Propofol 100 ml @ 0 mls/hr TITRATE IV Last administered on 01/31/17 04:33; Start 01/31/17 at 00:30 Cefepime HCl/ Sodium Chloride (Maxipime Inj/NS Inj) 100 ml @ 200 mls/hr Q24H IV Last administered on 02/02/17 01:00; Start 01/31/17 at 01:00 Aspirin (Aspirin Chew) 81 mg DAILY CHEW Last administered on 02/01/17 08:22; Start 02/01/17 at 09:00 Benztropine Mesylate (Cogentin) 1 mg TID PO Last administered on 02/01/17 17: 56; Start 01/31/17 at 18:00 Citalopram Hydrobromide (CeleXA) 20 mg DAILY PO Last administered on 02/01/17 08:27; Start 02/01/17 at 09:00 Hydroxyzine HCl (Atarax) 10 mg HS PRN PO SLEEP Last administered on 02/01/17 22:54; Start 01/31/17 at 15:30 Lamotrigine (LaMICtal) 200 mg BID PO Last administered on 02/01/17 22:53; Start 01/31/17 at 21:00 Levothyroxine Sodium (Synthroid) 75 mcg DAILY@06 PO Last administered on 04:25; Start 02/01/17 at 06:00 Pravastatin Sodium (Pravachol) 10 mg DAILY PO Last administered on 02/01/17 08 :31; Start 02/01/17 at 09:00 Memantine (Namenda) 10 mg DAILY PO Last administered on 02/01/17 08:30; Start 02/01/17 at 09:00 Trihexyphenidyl HCl (Artane) 4 mg BID PO Last administered on 02/01/17 22:54; Start 01/31/17 at 21:00 Non-Formulary Medication 150 mg DAILY PO ; Start 02/01/17 at 09:00; Stop at 09:00; Status DC Famotidine (Pepcid Inj) 10 mg Q12H IV PUSH Last administered on 02/02/17 04:25 ; Start 01/31/17 at 16:00 Heparin Sodium (Porcine) 5000 units 5,000 units Q12HR SQ Last administered on 22:54; Start 01/31/17 at 21:00 Dextrose (D5W 1000 ml Inj) 1,000 ml @ 80 mls/hr [id number] IV Last administered on 02/01/17 22:54; Start 02/01/17 at 09:00 A/P Assessment and Plan A/P acute encephalopathy with history of parkinson's disease and dementia;- Metabolic toxic encephalopathy - Neuro checks - Neuro exam is nonfocal ; head CT with no acute abnormality - Resumed home dose of Lamictal and Namenda UTI; continue Abx- UC with proteus; change Abx to Rocephin Hypernatremia- improving - continue D5W- will monitor the sodium level renal insufficiency with unknown duration- improving; will continue IV fluid and monitor the renal function and electrolytes Hypothyroidism - Synthroid DVT GI prophylaxis - Heparin and Pepcid consulted PT/ST. for transfer to telemetry. d/w the RN. Discharge Planning case management consulted for dc planning. Jaqui Espinoza MD Feb 02, 2017 07:54
[2017-02-02] MEDS ORDERED: POTASSIUM CHLORIDE 10 MEQ CONTROLLED RELEASE TAB PO ONE (08:00)
[2017-02-02] MEDS: CHLORHEXIDINE 0.12% (ORAL KIT) 15 ML CUP MT SCH ×2 (08:00→20:00)
[2017-02-02] MEDS: PANTOPRAZOLE SODIUM 40 MG VIAL IV SCH (09:00)
[2017-02-02] MEDS: MEMANTINE HCL 10 MG TAB PO SCH (09:50)
[2017-02-02] MEDS: lamoTRIgine 100 MG TAB PO SCH ×2 (09:50→21:46)
[2017-02-02] MEDS: CITALOPRAM HYDROBROMIDE 20 MG TAB PO SCH (09:50)
[2017-02-02] MEDS: PRAVASTATIN SOD 10 MG TAB PO SCH (09:50)
[2017-02-02] MEDS: BENZTROPINE MESYLATE 1 MG TAB PO SCH ×3 (09:50→21:45)
[2017-02-02] MEDS: ASPIRIN 81 MG CHEW TAB CHEW SCH (09:50)
[2017-02-02] MEDS: DOCUSATE SODIUM 100 MG/10 ML UDC TUBE SCH ×2 (09:50→21:00)
[2017-02-02] MEDS: SODIUM CHLORIDE 0.9% FLUSH 5 ML FLUSH IV FLUSH SCH ×2 (09:51→21:00)
[2017-02-02] MEDS: cefTRIAXone INJ 1,000 MG in SODIUM CHLORIDE 0.9% INJ 100 ML IV SCH (09:51)
[2017-02-02] MEDS: TRIHEXYPHENIDYL HCL 2 MG TAB PO SCH ×2 (09:55→21:44)
[2017-02-02] MEDS: HEPARIN SODIUM - SQ 10,000 UNITS/ML VIAL SQ SCH ×2 (09:56→21:47)
[2017-02-02] MEDS: DEXTROSE 5% IN WATE 1000ML INJ 1,000 ML IV SCH ×2 (12:29→22:49)
[2017-02-03] VITALS (10 sets, daily range): BP systolic 118–149; BP diastolic 62–95; PULSE 51–79; RESP 17–23; TEMP 97.4–98.6; O2SAT 92–100
[2017-02-03] MEDS: CHLORHEXIDINE GLUCONATE 2 % 1 PACK (2 CLOTHS) TOP SCH (04:00)
[2017-02-03] MEDS: RESP: ALBUTEROL 2.5 MG/IPRATROPIUM 0.5 MG NEB (SCH) INH ×4 (04:02→21:30)
[2017-02-03] MEDS: FAMOTIDINE 20 MG/2 ML VIAL IV PUSH SCH ×2 (04:09→15:48)
[2017-02-03] MEDS: LEVOTHYROXINE SODIUM 75 MCG TAB PO SCH (04:52)
[2017-02-03 06:38] LABS: BICARBONATE 22.4 MEQ/L (21.0-32.0); POTASSIUM 3.8 MEQ/L (3.5-5.1)
[2017-02-03] MEDS: CHLORHEXIDINE 0.12% (ORAL KIT) 15 ML CUP MT SCH ×2 (08:00→20:00)
[2017-02-03] MEDS: ASPIRIN 81 MG CHEW TAB CHEW SCH (08:25)
[2017-02-03] MEDS: cefTRIAXone INJ 1,000 MG in SODIUM CHLORIDE 0.9% INJ 100 ML IV SCH (08:25)
[2017-02-03] MEDS: HEPARIN SODIUM - SQ 10,000 UNITS/ML VIAL SQ SCH ×2 (08:26→21:00)
[2017-02-03] MEDS: PRAVASTATIN SOD 10 MG TAB PO SCH (08:26)
[2017-02-03] MEDS: DOCUSATE SODIUM 100 MG/10 ML UDC TUBE SCH ×2 (08:27→22:13)
[2017-02-03] MEDS: MEMANTINE HCL 10 MG TAB PO SCH (08:27)
[2017-02-03] MEDS: BENZTROPINE MESYLATE 1 MG TAB PO SCH ×3 (08:27→18:14)
[2017-02-03] MEDS: CITALOPRAM HYDROBROMIDE 20 MG TAB PO SCH (08:27)
[2017-02-03] MEDS: SODIUM CHLORIDE 0.9% FLUSH 5 ML FLUSH IV FLUSH SCH ×2 (08:29→21:00)
[2017-02-03] MEDS: PANTOPRAZOLE SODIUM 40 MG VIAL IV SCH (08:29)
[2017-02-03] MEDS: lamoTRIgine 100 MG TAB PO SCH ×2 (08:51→22:08)
[2017-02-03] MEDS: TRIHEXYPHENIDYL HCL 2 MG TAB PO SCH ×2 (08:51→22:04)
[2017-02-03] MEDS: RESP: ALBUTEROL 2.5 MG/3 ML NEB (PRN) INH ×2 (09:32→14:51)
--- NOTE | 2017-02-03 09:32 | HHI.PR ---
Subjective Remarks in no acute distress. seems to be more alert today. no fever. d/w the RN and no acute issues over night. Objective Vitals Vital Signs Date Time Temp Pulse Resp B/P Pulse Ox O2 Delivery O2 Flow Rate FiO2 02/03/17 04:00 98.2 66 18 140/67 93 02/03/17 00:00 98.3 70 17 138/82 94 02/02/17 21:28 98 Nasal Cannula 2.00 02/02/17 20:00 98.4 62 16 143/66 93 02/02/17 19:15 64 02/02/17 19:00 93 Nasal Cannula 2.00 02/02/17 18:12 78 02/02/17 16:00 95.8 73 13 144/65 98 02/02/17 15:06 84 24 132/70 02/02/17 14:00 77 02/02/17 12:00 97.9 82 18 134/64 97 02/02/17 12:00 82 02/02/17 10:00 76 I/O 02/02/17 02/02/17 02/02/17 02/03/17 02/03/17 02/03/17 07:00 15:00 23:00 07:00 15:00 23:00 Intake Total 535 ml 985 ml 50 ml 50 ml Output Total 401 ml 650 ml 600 ml 350 ml Balance 134 ml 335 ml -550 ml -300 ml Intake Oral 50 ml 160 ml 50 ml 50 ml IV Total 485 ml 825 ml Output Urine Total 400 ml 650 ml 600 ml 350 ml Stool Total 1 ml 0 ml Result Diagram: 02/01/17 0321 02/03/17 0550 Imaging Last Impressions Head CT 01/30/172135 Signed Impressions: Service Date/Time: Monday, January 30, 2017 22:56 - CONCLUSION: Moderately severe atrophy. No acute findings. Ross Giron MD Chest X-Ray 01/30/172125 Signed Impressions: Service Date/Time: Monday, January 30, 2017 22:04 - CONCLUSION: Appropriate position of the endotracheal tube. Lungs are clear. Stomach is distended. Gerald Perez MD Objective Remarks GENERAL: in no apparent distress. CARDIOVASCULAR: Regular rate and regular rhythm without murmurs, gallops, or rubs. RESPIRATORY: Clear to auscultation. Breath sounds equal bilaterally. No wheezes , rales, or rhonchi. GASTROINTESTINAL: Abdomen soft, non-tender, nondistended. Normal, active bowel sounds MUSCULOSKELETAL: Extremities without clubbing, cyanosis, or edema. NEURO: awake and seems to be more alert today Procedures intubation Medications and IVs Current Medications Propofol 100 ml @ As Directed STK-MED ONCE .ROUTE ; Start 01/30/17 at 21:28; Stop 01/30/17 at 21:29; Status DC Propofol 100 ml @ 0 mls/hr TITRATE IV Last administered on 01/30/17 22:27; Start 01/30/17 at 21:30; Stop 01/31/17 at 00:29; Status DC Sodium Chloride 1,000 ml @ 200 mls/hr Q5H IV Last administered on 01/30/17 22 :25; Start 01/30/17 at 21:30; Stop 01/31/17 at 00:29; Status DC Ceftriaxone Sodium/Sodium Chloride (Rocephin Inj/NS Inj) 100 ml @ 200 mls/hr ONCE ONCE IV Last administered on 01/30/17 23:42; Start 01/30/17 at 23:45; Stop 01/31/17 at 00:14; Status DC IV Flush (NS Flush) 2 ml UNSCH PRN IV FLUSH FLUSH AFTER USING IV ACCESS Last administered on 02/03/17 04:09; Start 01/31/17 at 00:30 IV Flush (NS Flush) 2 ml BID IV FLUSH Last administered on 02/03/17 08:29; Start 01/31/17 at 09:00 Acetaminophen (Tylenol) 650 mg Q6H PRN PO PAIN 1-10 AND/OR FEVER >101F; Start 01/31/17 at 00:30 Pantoprazole Sodium (Protonix Inj) 40 mg DAILY IV Last administered on 08:29; Start 01/31/17 at 09:00 Ondansetron HCl (Zofran Inj) 4 mg Q6H PRN IV NAUSEA OR VOMITING; Start at 00:30 Docusate Sodium (Colace Liq) 100 mg BID TUBE Last administered on 02/03/17 08: 27; Start 01/31/17 at 09:00 Bisacodyl (Dulcolax Ec) 10 mg DAILY PRN PO CONSTIPATION; Start 01/31/17 at 00: 30 Albuterol/ Ipratropium (Duoneb Neb) 1 ampule Q6HR NEB INH Last administered on 02/03/17 04:02; Start 01/31/17 at 04:00 Albuterol Sulfate (Albuterol Neb) 2.5 mg Q2HR NEB PRN INH SOB/WHEEZING; Start 01/31/17 at 00:30 Miscellaneous Information 1 Q361D XX ; Start 01/31/17 at 00:30 Chlorhexidine Gluconate (Chlorhexidine 2% Cloth) 3 pack Taper DAILY@04 TOP Last administered on 02/02/17 01:01; Start 01/31/17 at 04:00; Stop 01/27/18 at 03:59 Chlorhexidine Gluconate 3 pack 3 pack UNSCH PRN TOP HYGIENIC CARE; Start at 00:30 Lactated Ringer's (Lr 1000 ml Inj) 1,000 ml @ 125 mls/hr Q8H IV Last administered on 02/01/17 08:23; Start 01/31/17 at 01:00; Stop 02/01/17 at 09:07 ; Status DC Chlorhexidine Gluconate 15 ml 15 ml BID@08,20 MT Last administered on 09:08; Start 01/31/17 at 08:00 Propofol 100 ml @ 0 mls/hr TITRATE IV Last administered on 01/31/17 04:33; Start 01/31/17 at 00:30 Cefepime HCl/ Sodium Chloride (Maxipime Inj/NS Inj) 100 ml @ 200 mls/hr Q24H IV Last administered on 02/02/17 01:00; Start 01/31/17 at 01:00; Stop at 07:52; Status DC Aspirin (Aspirin Chew) 81 mg DAILY CHEW Last administered on 02/03/17 08:25; Start 02/01/17 at 09:00 Benztropine Mesylate (Cogentin) 1 mg TID PO Last administered on 02/03/17 08: 27; Start 01/31/17 at 18:00 Citalopram Hydrobromide (CeleXA) 20 mg DAILY PO Last administered on 02/03/17 08:27; Start 02/01/17 at 09:00 Hydroxyzine HCl (Atarax) 10 mg HS PRN PO SLEEP Last administered on 02/01/17 22:54; Start 01/31/17 at 15:30 Lamotrigine (LaMICtal) 200 mg BID PO Last administered on 02/03/17 08:51; Start 01/31/17 at 21:00 Levothyroxine Sodium (Synthroid) 75 mcg DAILY@06 PO Last administered on 04:52; Start 02/01/17 at 06:00 Pravastatin Sodium (Pravachol) 10 mg DAILY PO Last administered on 02/03/17 08 :26; Start 02/01/17 at 09:00 Memantine (Namenda) 10 mg DAILY PO Last administered on 02/03/17 08:27; Start 02/01/17 at 09:00 Trihexyphenidyl HCl (Artane) 4 mg BID PO Last administered on 02/03/17 08:51; Start 01/31/17 at 21:00 Non-Formulary Medication 150 mg DAILY PO ; Start 02/01/17 at 09:00; Stop at 09:00; Status DC Famotidine (Pepcid Inj) 10 mg Q12H IV PUSH Last administered on 02/03/17 04:09 ; Start 01/31/17 at 16:00 Heparin Sodium (Porcine) 5000 units 5,000 units Q12HR SQ Last administered on 08:26; Start 01/31/17 at 21:00 Dextrose 1,000 ml @ 80 mls/hr [id number] IV Last administered on 02/02/17 22:49 ; Start 02/01/17 at 09:00 Ceftriaxone Sodium/Sodium Chloride (Rocephin Inj/NS Inj) 100 ml @ 200 mls/hr Q24H IV Last administered on 02/03/17 08:25; Start 02/02/17 at 09:00 Potassium Chloride (KCl) 10 meq ONCE ONCE PO Last administered on 02/02/17 09 :50; Start 02/02/17 at 08:00; Stop 02/02/17 at 08:01; Status DC A/P Assessment and Plan A/P acute encephalopathy with history of parkinson's disease and dementia;- Metabolic toxic encephalopathy - Neuro checks - Neuro exam is nonfocal ; head CT with no acute abnormality - Resumed home dose of Lamictal and Namenda UTI; continue Abx- UC with proteus; changed Abx to Rocephin- will switch to po upon discharge. Hypernatremia- improving - continue D5W- will monitor the sodium level renal insufficiency with unknown duration- improving; will continue IV fluid and monitor the renal function and electrolytes Hypothyroidism - Synthroid DVT GI prophylaxis - Heparin and Pepcid consulted PT/ST. will dc reis cath. d/w the RN. Discharge Planning d/w the patient's in detail; SNF and HHC were offered and she declined both; she's willing to take him home. possible dc home in am if stable. Jaqui Espinoza MD Feb 03, 2017 09:32
[2017-02-03] MEDS ORDERED: CIPR250T52 PO (09:35)
--- NOTE | 2017-02-03 09:35 | HHI.DCPOC ---
Discharge Care Plan Diagnosis: (1) UTI (urinary tract infection) Your Health Problems Are: Anxiety Difficulty with ADL Goals to Promote Your Health * To prevent worsening of your condition and complications * To maintain your health at the optimal level Directions to Meet Your Goals Take your medications as prescribed Follow your dietary instruction Follow activity as directed Keep your appointments as scheduled Take your immunizations and boosters as scheduled If your symptoms worsen call your PCP, if no PCP go to Urgent Care Center or Emergency Room Smoking is Dangerous to Your Health. Avoid second hand smoke Call the 24-hour hour crisis hotline for domestic abuse at Jaqui Espinoza MD Feb 03, 2017 09:35
[2017-02-03] MEDS: DEXTROSE 5% IN WATE 1000ML INJ 1,000 ML IV SCH (11:41)
[2017-02-03] MEDS: hydrOXYzine HCL 10 MG TAB PO PRN (22:01)
[2017-02-04] VITALS: BP 121/74; PULSE 76; RESP 20; TEMP 98; O2SAT 93
[2017-02-04 04:00] VITALS: BP 137/72; PULSE 89; RESP 20; TEMP 98.2; O2SAT 92
[2017-02-04] MEDS: CHLORHEXIDINE GLUCONATE 2 % 1 PACK (2 CLOTHS) TOP SCH (04:00)
[2017-02-04] MEDS: DEXTROSE 5% IN WATE 1000ML INJ 1,000 ML IV SCH ×2 (05:59→10:45)
[2017-02-04] MEDS: FAMOTIDINE 20 MG/2 ML VIAL IV PUSH SCH ×2 (05:59→17:12)
[2017-02-04] MEDS: LEVOTHYROXINE SODIUM 75 MCG TAB PO SCH (05:59)
[2017-02-04 06:26] LABS: BICARBONATE 26.8 MEQ/L (21.0-32.0); POTASSIUM 3.8 MEQ/L (3.5-5.1)
[2017-02-04 07:15] VITALS: PULSE 53
[2017-02-04 08:00] VITALS: BP 156/85; PULSE 57; RESP 20; TEMP 97.8; O2SAT 100
[2017-02-04] MEDS: CHLORHEXIDINE 0.12% (ORAL KIT) 15 ML CUP MT SCH (08:00)
--- NOTE | 2017-02-04 08:44 | HHI.PR ---
Subjective Remarks resting comfortably with no distress. denies pain. no fever. d/w the RN and no acute issues over night. Objective Vitals Vital Signs Date Time Temp Pulse Resp B/P Pulse Ox O2 Delivery O2 Flow Rate FiO2 02/04/17 04:00 98.2 89 20 137/72 92 02/04/17 00:00 98.0 76 20 121/74 93 02/03/17 21:30 96 Nasal Cannula 2.00 02/03/17 20:00 98.2 64 20 149/74 100 02/03/17 19:15 51 02/03/17 19:00 97 Nasal Cannula 2.00 02/03/17 16:00 98.3 66 23 118/62 100 02/03/17 12:00 97.4 78 22 137/95 97 02/03/17 10:45 97 Nasal Cannula 2.00 02/03/17 09:32 92 Nasal Cannula 2.00 I/O 02/03/17 02/03/17 02/03/17 02/04/17 02/04/17 02/04/17 07:00 15:00 23:00 07:00 15:00 23:00 Intake Total 50 ml 2200 ml 120 ml Output Total 350 ml Balance -300 ml 2200 ml 120 ml Intake Oral 50 ml 240 ml 120 ml IV Total 1960 ml Output Urine Total 350 ml # Voids 3 4 # Bowel Movements 0 Result Diagram: 02/01/17 0321 02/04/17 0451 Imaging Last Impressions Head CT 01/30/172135 Signed Impressions: Service Date/Time: Monday, January 30, 2017 22:56 - CONCLUSION: Moderately severe atrophy. No acute findings. Ross Giron MD Chest X-Ray 01/30/172125 Signed Impressions: Service Date/Time: Monday, January 30, 2017 22:04 - CONCLUSION: Appropriate position of the endotracheal tube. Lungs are clear. Stomach is distended. Gerald Perez MD Objective Remarks GENERAL: in no apparent distress. CARDIOVASCULAR: Regular rate and regular rhythm without murmurs, gallops, or rubs. RESPIRATORY: Clear to auscultation. Breath sounds equal bilaterally. No wheezes , rales, or rhonchi. GASTROINTESTINAL: Abdomen soft, non-tender, nondistended. Normal, active bowel sounds MUSCULOSKELETAL: Extremities without clubbing, cyanosis, or edema. NEURO: awake and seems to be more alert today Procedures intubation Medications and IVs Current Medications Propofol 100 ml @ As Directed STK-MED ONCE .ROUTE ; Start 01/30/17 at 21:28; Stop 01/30/17 at 21:29; Status DC Propofol 100 ml @ 0 mls/hr TITRATE IV Last administered on 01/30/17 22:27; Start 01/30/17 at 21:30; Stop 01/31/17 at 00:29; Status DC Sodium Chloride 1,000 ml @ 200 mls/hr Q5H IV Last administered on 01/30/17 22 :25; Start 01/30/17 at 21:30; Stop 01/31/17 at 00:29; Status DC Ceftriaxone Sodium/Sodium Chloride (Rocephin Inj/NS Inj) 100 ml @ 200 mls/hr ONCE ONCE IV Last administered on 01/30/17 23:42; Start 01/30/17 at 23:45; Stop 01/31/17 at 00:14; Status DC IV Flush (NS Flush) 2 ml UNSCH PRN IV FLUSH FLUSH AFTER USING IV ACCESS Last administered on 02/03/17 04:09; Start 01/31/17 at 00:30 IV Flush (NS Flush) 2 ml BID IV FLUSH Last administered on 02/03/17 08:29; Start 01/31/17 at 09:00 Acetaminophen (Tylenol) 650 mg Q6H PRN PO PAIN 1-10 AND/OR FEVER >101F; Start 01/31/17 at 00:30 Pantoprazole Sodium (Protonix Inj) 40 mg DAILY IV Last administered on 08:29; Start 01/31/17 at 09:00 Ondansetron HCl (Zofran Inj) 4 mg Q6H PRN IV NAUSEA OR VOMITING; Start at 00:30 Docusate Sodium (Colace Liq) 100 mg BID TUBE Last administered on 02/03/17 22: 13; Start 01/31/17 at 09:00 Bisacodyl (Dulcolax Ec) 10 mg DAILY PRN PO CONSTIPATION; Start 01/31/17 at 00: 30 Albuterol/ Ipratropium (Duoneb Neb) 1 ampule Q6HR NEB INH Last administered on 02/03/17 21:30; Start 01/31/17 at 04:00; Stop 02/04/17 at 04:00; Status DC Albuterol Sulfate (Albuterol Neb) 2.5 mg Q2HR NEB PRN INH SOB/WHEEZING Last administered on 02/03/17 14:51; Start 01/31/17 at 00:30 Miscellaneous Information 1 Q361D XX ; Start 01/31/17 at 00:30 Chlorhexidine Gluconate (Chlorhexidine 2% Cloth) 3 pack Taper DAILY@04 TOP Last administered on 02/02/17 01:01; Start 01/31/17 at 04:00; Stop 01/27/18 at 03:59 Chlorhexidine Gluconate 3 pack 3 pack UNSCH PRN TOP HYGIENIC CARE; Start at 00:30 Lactated Ringer's (Lr 1000 ml Inj) 1,000 ml @ 125 mls/hr Q8H IV Last administered on 02/01/17 08:23; Start 01/31/17 at 01:00; Stop 02/01/17 at 09:07 ; Status DC Chlorhexidine Gluconate 15 ml 15 ml BID@08,20 MT Last administered on 09:08; Start 01/31/17 at 08:00 Propofol 100 ml @ 0 mls/hr TITRATE IV Last administered on 01/31/17 04:33; Start 01/31/17 at 00:30 Cefepime HCl/ Sodium Chloride (Maxipime Inj/NS Inj) 100 ml @ 200 mls/hr Q24H IV Last administered on 02/02/17 01:00; Start 01/31/17 at 01:00; Stop at 07:52; Status DC Aspirin (Aspirin Chew) 81 mg DAILY CHEW Last administered on 02/03/17 08:25; Start 02/01/17 at 09:00 Benztropine Mesylate (Cogentin) 1 mg TID PO Last administered on 02/03/17 18: 14; Start 01/31/17 at 18:00 Citalopram Hydrobromide (CeleXA) 20 mg DAILY PO Last administered on 02/03/17 08:27; Start 02/01/17 at 09:00 Hydroxyzine HCl (Atarax) 10 mg HS PRN PO SLEEP Last administered on 02/03/17 22:01; Start 01/31/17 at 15:30 Lamotrigine (LaMICtal) 200 mg BID PO Last administered on 02/03/17 22:08; Start 01/31/17 at 21:00 Levothyroxine Sodium (Synthroid) 75 mcg DAILY@06 PO Last administered on 05:59; Start 02/01/17 at 06:00 Pravastatin Sodium (Pravachol) 10 mg DAILY PO Last administered on 02/03/17 08 :26; Start 02/01/17 at 09:00 Memantine (Namenda) 10 mg DAILY PO Last administered on 02/03/17 08:27; Start 02/01/17 at 09:00 Trihexyphenidyl HCl (Artane) 4 mg BID PO Last administered on 02/03/17 22:04; Start 01/31/17 at 21:00 Non-Formulary Medication 150 mg DAILY PO ; Start 02/01/17 at 09:00; Stop at 09:00; Status DC Famotidine (Pepcid Inj) 10 mg Q12H IV PUSH Last administered on 02/04/17 05:59 ; Start 01/31/17 at 16:00 Heparin Sodium (Porcine) 5000 units 5,000 units Q12HR SQ Last administered on 21:00; Start 01/31/17 at 21:00 Dextrose 1,000 ml @ 80 mls/hr [id number] IV Last administered on 02/04/17 05:59 ; Start 02/01/17 at 09:00 Ceftriaxone Sodium/Sodium Chloride (Rocephin Inj/NS Inj) 100 ml @ 200 mls/hr Q24H IV Last administered on 02/03/17 08:25; Start 02/02/17 at 09:00 Potassium Chloride (KCl) 10 meq ONCE ONCE PO Last administered on 02/02/17 09 :50; Start 02/02/17 at 08:00; Stop 02/02/17 at 08:01; Status DC A/P Assessment and Plan A/P acute encephalopathy with history of parkinson's disease and dementia;- Metabolic toxic encephalopathy - Neuro exam is nonfocal ; head CT with no acute abnormality - Resumed home dose of Lamictal and Namenda UTI; continue Abx- UC with proteus; - will switch to po upon discharge. Hypernatremia- resolved renal insufficiency with unknown duration- improved and stable after IV hydration- f/u as outpatient. Hypothyroidism - Synthroid DVT GI prophylaxis - Heparin and Pepcid consulted PT/ST. Discharge Planning previously d/w the patient's in detail; SNF and C were offered and she declined both; she's willing to take him home. will dc home today. see med list. f/u with pcp. d/w the RN. Jaqui Espinoza MD Feb 04, 2017 08:44
--- NOTE | 2017-02-04 08:45 | HHI.DS ---
Discharge Summary Admission Date Jan 31, 2017 at 00:21 Discharge Date: Feb 04, 2017 Admitting Diagnosis respiratory failure, altered mental status (1) Hypernatremia ICD Code: E87.0 Diagnosis: Principal (2) Respiratory failure ICD Code: J96.90 Diagnosis: Principal (3) UTI (urinary tract infection) ICD Code: N39.0 Diagnosis: Principal Procedures intubation Brief History - From Admission 76-year-old male is brought by paramedics because he was hard to waken up and he seemed confused at home. He is bedbound. He has a history of multiple strokes, cardiac bypass surgery. Patient's says he has not been eating well the last couple of days. After the afternoon nap he was hard to arouse. She called for paramedics. Paramedics reported that he was quite lethargic. He has a history of dementia and Parkinson's disease. CBC/BMP: 02/01/17 0321 02/04/17 0451 Significant Findings Laboratory Tests Test 02/02/17 02/03/17 02/04/17 04:40 05:50 04:51 Sodium Level 156 MEQ/L 149 MEQ/L (136-145) (136-145) Potassium Level 3.4 MEQ/L (3.5-5.1) Chloride Level 125 MEQ/L 117 MEQ/L 111 MEQ/L (98-107) (98-107) (98-107) Blood Urea Nitrogen 27 MG/DL (7-18) Creatinine 1.86 MG/DL 1.68 MG/DL 1.70 MG/DL (0.60-1.30) (0.60-1.30) (0.60-1.30) Estimat Glomerular Filtration 36 ML/MIN (>89) 40 ML/MIN (>89) 40 ML/MIN (>89) Rate Calcium Level 8.4 MG/DL (8.5-10.1) Imaging Last Impressions Head CT 01/30/17 7662 Signed Impressions: Service Date/Time: Monday, January 30, 2017 22:56 - CONCLUSION: Moderately severe atrophy. No acute findings. Ross Giron MD Chest X-Ray 3/10/17 2126 Signed Impressions: Service Date/Time: Monday, January 30, 2017 22:04 - CONCLUSION: Appropriate position of the endotracheal tube. Lungs are clear. Stomach is distended. Gerald Perez MD PE at Discharge GENERAL: in no apparent distress. CARDIOVASCULAR: Regular rate and regular rhythm without murmurs, gallops, or rubs. RESPIRATORY: Clear to auscultation. Breath sounds equal bilaterally. No wheezes , rales, or rhonchi. GASTROINTESTINAL: Abdomen soft, non-tender, nondistended. Normal, active bowel sounds MUSCULOSKELETAL: Extremities without clubbing, cyanosis, or edema. NEURO: awake and seems to be more alert today Hospital Course acute encephalopathy with history of parkinson's disease and dementia;- Metabolic toxic encephalopathy - Neuro exam is nonfocal ; head CT with no acute abnormality - Resumed home dose of Lamictal and Namenda UTI; continue Abx- UC with proteus; - will switch to po upon discharge. Hypernatremia- resolved renal insufficiency with unknown duration- improved and stable after IV hydration- f/u as outpatient. Hypothyroidism - Synthroid DVT GI prophylaxis - Heparin and Pepcid consulted PT/ST. Pt Condition on Discharge: Fair Discharge Disposition: Discharge Home Discharge Time: <= 30 minutes Discharge Instructions DIET: Follow Instructions for: Pureed Diet Speech Therapy-Diet Recommends: Honey Thickened Liquids Activities you can perform: Regular-No Restrictions Follow up Referrals: PCP Follow-up New Medications: Ciprofloxacin (Cipro) 250 Mg Tab 250 MG PO BID Infection Days 3 Ref 0 TAB Continued Medications: Aspirin (Aspirin Low Dose) 81 Mg Chew 81 MG CHEW DAILY Ref 0 TAB Benztropine (Benztropine) 1 Mg Tab 1 MG PO TID #60 Ref 0 TAB Citalopram (Citalopram) 20 Mg Tab 20 MG PO DAILY Control Depression #30 Ref 0 TAB Hydroxyzine HCl (Hydroxyzine HCl) 10 Mg Tab 10 MG PO HS PRN SLEEP Ref 0 TAB Lamotrigine (Lamotrigine) 200 Mg Tab 200 MG PO BID Control Seizures #60 Ref 0 TAB Levothyroxine (Levothyroxine) 75 Mcg Tab 75 MCG PO DAILY Thyroid #30 Ref 0 TAB Lorazepam (Lorazepam) 0.5 Mg Tab 0.1 MG PO BID PRN ANXIETY Ref 0 TAB Lorazepam (Lorazepam) 0.5 Mg Tab 0.15 MG PO HS PRN ANXIETY AND/OR INSOMNIA Ref 0 TAB Lovastatin (Lovastatin) 20 Mg Tab 10 MG PO DAILY Cholesterol Management #30 Ref 0 TAB Memantine (Memantine) 10 Mg Tab 10 MG PO DAILY Alzheimer's Dementia Ref 0 TAB Ranitidine (Ranitidine) 150 Mg Cap 150 MG PO DAILY #30 Ref 0 CAP Trihexyphenidyl (Trihexyphenidyl) 2 Mg Tab 4 MG PO BID Parkinson Disease Mgmt #60 Ref 0 TAB Discontinued Medications: Sulfamethoxazole-Trimethoprim (Sulfamethoxazole-Trimethoprim) 800-160 Mg Tab 1 TAB PO BID Infection Ref 0 TAB Jaqui Espinoza MD Feb 04, 2017 08:45
[2017-02-04] MEDS: cefTRIAXone INJ 1,000 MG in SODIUM CHLORIDE 0.9% INJ 100 ML IV SCH (09:02)
[2017-02-04] MEDS: CITALOPRAM HYDROBROMIDE 20 MG TAB PO SCH (09:05)
[2017-02-04] MEDS: PRAVASTATIN SOD 10 MG TAB PO SCH (09:05)
[2017-02-04] MEDS: lamoTRIgine 100 MG TAB PO SCH (09:05)
[2017-02-04] MEDS: PANTOPRAZOLE SODIUM 40 MG VIAL IV SCH (09:05)
[2017-02-04] MEDS: MEMANTINE HCL 10 MG TAB PO SCH (09:05)
[2017-02-04] MEDS: BENZTROPINE MESYLATE 1 MG TAB PO SCH ×3 (09:05→17:12)
[2017-02-04] MEDS: ASPIRIN 81 MG CHEW TAB CHEW SCH (09:05)
[2017-02-04] MEDS: SODIUM CHLORIDE 0.9% FLUSH 5 ML FLUSH IV FLUSH SCH (09:05)
[2017-02-04] MEDS: HEPARIN SODIUM - SQ 10,000 UNITS/ML VIAL SQ SCH (09:06)
[2017-02-04] MEDS: DOCUSATE SODIUM 100 MG/10 ML UDC TUBE SCH (09:06)
[2017-02-04] MEDS: TRIHEXYPHENIDYL HCL 2 MG TAB PO SCH (09:06)
[2017-02-04 12:00] VITALS: BP 160/83; PULSE 48; RESP 20; TEMP 96.6; O2SAT 100
== END 2017-02-04 19:24 | disposition home or self-care (01) | DRG 208 ==
LOC: PHED 21:12 → PHEDA 01-31 00:21 → HIME 01-31 06:40 → HCPC 02-02 14:51
PROVIDERS: ADMIT Internal Medicine; ATTEND Internal Medicine
PROC: 5A1935Z Respiratory Ventilation, Less than 24 Consecutive Hours (ICD-10-PCS; principal; 2017-01-30)
PROC: 0BH17EZ Insertion of Endotracheal Airway into Trachea, Via Natural or Artificial Opening (ICD-10-PCS; 2017-01-30)
PROC: 0T9B70Z Drainage of Bladder with Drainage Device, Via Natural or Artificial Opening (ICD-10-PCS; 2017-01-30)
DX: J96.01 Acute respiratory failure with hypoxia (principal); E87.0 Hyperosmolality and hypernatremia; G93.41 Metabolic encephalopathy; N39.0 Urinary tract infection, site not specified; E46 Unspecified protein-calorie malnutrition; F03.90 Unspecified dementia, unspecified severity, without behavioral disturbance, psychotic disturbance, mood disturbance, and anxiety; G20 Parkinson's disease; Z74.01 Bed confinement status; Z86.73 Personal history of transient ischemic attack (TIA), and cerebral infarction without residual deficits; F43.10 Post-traumatic stress disorder, unspecified; E03.9 Hypothyroidism, unspecified; I25.10 Atherosclerotic heart disease of native coronary artery without angina pectoris; Z95.1 Presence of aortocoronary bypass graft; E86.0 Dehydration; Z78.1 Physical restraint status; N28.9 Disorder of kidney and ureter, unspecified; B96.4 Proteus (mirabilis) (morganii) as the cause of diseases classified elsewhere
CPT/HCPCS: 31500; 36600; 51702; 70450; 71010; 80048; 80053; 81001; 82805; 83605; 83735; 83880; 84100; 84443; 84484; 85007; 85025; 85027; 85610; 85730; 87040; 87077; 87086; 87186; 87641; 87804; 93005; 94002; 94003; 94640; 94664; 96365; C9113; J0692; J0696; J1644; J7030; J7070; J7120; J7613

== ENCOUNTER 2017-03-13 21:43 | Observation (INO) | payer OTHER, MEDICARE, BC ==
[~2017-03-13 21:43] MED LIST changes: +ASPI81CH37 CHEW; +BENZ1TAB PO; +CIPR250T52 PO; +CITA20TA4 PO; +HYDR-755 PO; +LAMO200T PO; -LEVO500T3 PO; +LEVO75TA3 PO; +LORA-373 PO; +LOVA20TA PO; +MEMA1TAB2 PO; +RANI150C PO; +TRIH2 PO
[2017-03-13 21:51] VITALS: BP 122/66; PULSE 57; RESP 18; O2SAT 97
[2017-03-14] MEDS ORDERED: SODIUM CHLOR 0.9% 1000 ML INJ 1,000 ML IV SCH ×2 (00:43→03:07)
[2017-03-14] MEDS ORDERED: SODIUM CHLORIDE 0.9% FLUSH 10 ML FLUSH IVF PRN (00:45)
[2017-03-14 01:07] LABS: AUTOMATED NEUTROPHIL # 8.4 TH/MM3 (1.8-7.7); BASOPHIL # 0.1 TH/MM3 (0-0.2); BASOPHIL % 0.8 % (0.0-2.0); EOSINOPHIL # 0.2 TH/MM3 (0-0.4); EOSINOPHIL % 1.4 % (0.0-4.0); HEMATOCRIT 35.9 % (39.0-51.0); HEMO FLAGS DIFF FINAL; LYMPHOCYTE # 1.9 TH/MM3 (1.0-4.8); MEAN CELL VOLUME 92.6 FL (80.0-100.0); MEAN CORPUSCULAR HEMOGLOBIN 29.7 PG (27.0-34.0); MEAN CORPUSCULAR HGB CONC 32.1 % (32.0-36.0); NEUT % 74.8 % (16.0-70.0); PLATELET COUNT 242 TH/MM3 (150-450); RED BLOOD COUNT 3.88 MIL/MM3 (4.50-5.90); RED CELL DISTRIBUTION WIDTH 14.2 % (11.6-17.2); WHITE BLOOD COUNT 11.3 TH/MM3 (4.0-11.0)
[2017-03-14 01:25] LABS: ANION GAP 7 MEQ/L (5-15); AST (GOT) 18 U/L (15-37); BICARBONATE 26.1 MEQ/L (21.0-32.0); BLOOD UREA NITROGEN 28 MG/DL (7-18); CHLORIDE 112 MEQ/L (98-107); GLOMERULAR FILTRATION RATE 36 ML/MIN (>89); POTASSIUM 4.2 MEQ/L (3.5-5.1); SODIUM (NA) 145 MEQ/L (136-145)
[2017-03-14 01:28] LABS: ALKALINE PHOSPHATASE 89 U/L (45-117); ALT (GPT) 18 U/L (12-78); TOTAL BILIRUBIN ADULT 0.2 MG/DL (0.2-1.0)
[2017-03-14 02:02] LABS: BACTERIA, URINE MANY /hpf; BLOOD, URINE SMALL (NEG); COMMENT (UR) CATH-CULTURE IND; CULTURE IF INDICATED CATH CULTURE IND; GLUCOSE,URINE NEG (NEG); KETONE, URINE NEG (NEG); MUCUS URINE FEW /lpf (OCC); NITRITE,URINE POS (NEG); PH, URINE 6.5 (5.0-8.5); SQUAMOUS EPITHELIAL CELL URINE <1 /hpf (0-5); URINE COLOR YELLOW (YELLW/STRAW)
[2017-03-14] MEDS ORDERED: cefTRIAXone INJ 1,000 MG in SODIUM CHLORIDE 0.9% INJ 100 ML IV ONE (02:15)
--- NOTE | 2017-03-14 02:49 | PD ---
HPI Chief Complaint: Complaint Time Seen by Provider: 00:25 Travel History International Travel<30 days: No Contact w/Intl Traveler<30days: No Traveled to known affect area: No History of Present Illness HPI 76-year-old male arrives home with the daughter. The patient has Parkinson's dementia. He normally is conversant. Lately he has been nonverbal. He appears quite agitated at times according to the daughter. He has had decreased oral intake secondary to difficulty swallowing. He is incontinent of urine and stool. He has had urinary tract infection in the past the daughter thinks similar presentation could account for his symptoms now. PFSH Past Medical History Alzheimer's Disease: Yes Cerebrovascular Accident: Yes Diminished Hearing: No Past Surgical History Surgical History: Unable to Obtain Social History Alcohol Use: No Tobacco Use: No Substance Use: No Allergies-Medications (Allergen,Severity, Reaction): Coded Allergies: No Known Allergies (Unverified , 03/13/17) Reported Meds & Prescriptions Reported Meds & Active Scripts Active Cipro (Ciprofloxacin HCl) 250 Mg Tab 250 Mg PO BID 3 Days Reported Sulfamethoxazole-Trimethoprim 800-160 Mg Tab 1 Tab PO BID Benztropine (Benztropine Mesylate) 1 Mg Tab 1 Mg PO TID Ranitidine (Ranitidine HCl) 150 Mg Cap 150 Mg PO DAILY Citalopram (Citalopram Hydrobromide) 20 Mg Tab 20 Mg PO DAILY Memantine 10 Mg Tab 10 Mg PO DAILY Trihexyphenidyl (Trihexyphenidyl HCl) 2 Mg Tab 4 Mg PO BID Hydroxyzine HCl 10 Mg Tab 10 Mg PO HS PRN Aspirin Low Dose (Aspirin) 81 Mg Chew 81 Mg CHEW DAILY Lovastatin 20 Mg Tab 10 Mg PO DAILY Lorazepam 0.5 Mg Tab 0.15 Mg PO HS PRN Lorazepam 0.5 Mg Tab 0.1 Mg PO BID PRN Levothyroxine (Levothyroxine Sodium) 75 Mcg Tab 75 Mcg PO DAILY Lamotrigine 200 Mg Tab 200 Mg PO BID Review of Systems Except as stated in HPI: all other systems reviewed are Neg General / Constitutional: No: Fever, Chills Physical Exam Narrative GENERAL: 76-year-old male, thin, nonverbal, agitated SKIN: Focused skin assessment warm/dry. HEAD: Atraumatic. Normocephalic. EYES: Pupils equal and round. No scleral icterus. No injection or drainage. ENT: No nasal bleeding or discharge. Mucous membranes pink and moist. NECK: Trachea midline. No JVD. CARDIOVASCULAR: Regular rate and rhythm. No murmur appreciated. RESPIRATORY: No accessory muscle use. Clear to auscultation. Breath sounds equal bilaterally. GASTROINTESTINAL: Abdomen soft, non-tender, nondistended. Hepatic and splenic margins not palpable. MUSCULOSKELETAL: No obvious deformities. No clubbing. No cyanosis. No edema. NEUROLOGICAL: Moving all extremities. The face/cranial nerves appear symmetric. Patient is nonverbal. PSYCHIATRIC: Unable to assess. Appears somewhat agitated. Data Data Last Documented VS Vital Signs Date Time Temp Pulse Resp B/P Pulse Ox O2 Delivery O2 Flow Rate FiO2 03/13/17 21:57 18 03/13/17 21:51 57 122/66 97 Orders Complete Blood Count With Diff (03/14/17 00:43) Comprehensive Metabolic Panel (03/14/17 00:43) Urinalysis - C+S If Indicated (03/14/17 00:43) Blood Glucose (03/14/17 00:43) Ecg Monitoring (03/14/17 00:43) Iv Access Insert/Monitor (03/14/17 00:43) Oximetry (03/14/17 00:43) Sodium Chloride 0.9% Flush (Ns Flush) (03/14/17 00:45) Sodium Chlor 0.9% 1000 Ml Inj (Ns 1000 M (03/14/17 00:43) ^ Straight Catheter (03/14/17 00:43) Urine Culture (03/14/17 01:45) Ceftriaxone Inj (Rocephin Inj) (03/14/17 02:15) Labs Laboratory Tests Test 03/14/17 03/14/17 00:45 01:45 White Blood Count 11.3 TH/MM3 Red Blood Count 3.88 MIL/MM3 Hemoglobin 11.5 GM/DL Hematocrit 35.9 % Mean Corpuscular Volume 92.6 FL Mean Corpuscular Hemoglobin 29.7 PG Mean Corpuscular Hemoglobin 32.1 % Concent Red Cell Distribution Width 14.2 % Platelet Count 242 TH/MM3 Mean Platelet Volume 9.3 FL Neutrophils (%) (Auto) 74.8 % Lymphocytes (%) (Auto) 17.0 % Monocytes (%) (Auto) 6.0 % Eosinophils (%) (Auto) 1.4 % Basophils (%) (Auto) 0.8 % Neutrophils # (Auto) 8.4 TH/MM3 Lymphocytes # (Auto) 1.9 TH/MM3 Monocytes # (Auto) 0.7 TH/MM3 Eosinophils # (Auto) 0.2 TH/MM3 Basophils # (Auto) 0.1 TH/MM3 CBC Comment DIFF FINAL Differential Comment Sodium Level 145 MEQ/L Potassium Level 4.2 MEQ/L Chloride Level 112 MEQ/L Carbon Dioxide Level 26.1 MEQ/L Anion Gap 7 MEQ/L Blood Urea Nitrogen 28 MG/DL Creatinine 1.85 MG/DL Estimat Glomerular Filtration 36 ML/MIN Rate Random Glucose 76 MG/DL Calcium Level 9.4 MG/DL Total Bilirubin 0.2 MG/DL Aspartate Amino Transf 18 U/L (AST/SGOT) Alanine Aminotransferase 18 U/L (ALT/SGPT) Alkaline Phosphatase 89 U/L Total Protein 7.3 GM/DL Albumin 3.1 GM/DL Urine Color YELLOW Urine Turbidity HAZY Urine pH 6.5 Urine Specific [place] 1.014 Urine Protein TRACE mg/dL Urine Glucose (UA) NEG mg/dL Urine Ketones NEG mg/dL Urine Occult Blood SMALL Urine Nitrite POS Urine Bilirubin NEG Urine Urobilinogen LESS THAN 2.0 MG/DL Urine Leukocyte Esterase LARGE Urine RBC 11 /hpf Urine WBC 51 /hpf Urine WBC Clumps MOD Urine Squamous Epithelial <1 /hpf Cells Urine Bacteria MANY /hpf Urine Mucus FEW /lpf Microscopic Urinalysis Comment CATH-CULTURE IND MDM Medical Decision Making Medical Screen Exam Complete: Yes Emergency Medical Condition: Yes Medical Record Reviewed: Yes Differential Diagnosis UTI, dehydration, polypharmacy, progression of disease Narrative Course CBC & BMP Diagram 03/14/17 00:45 LFTs normal UA: UTI present AMS with UTI and mild prerenal dehydration. Rocephin given. 1L NS transfused. d/ w Dr Mae. Diagnosis Primary Impression: UTI (urinary tract infection) Qualified Code: N30.01 - Acute cystitis with hematuria Additional Impression: Hypernatremia Admitting Information Admitting Physician Requests: Admit Mathew Cade MD Mar 14, 2017 02:49
[2017-03-14 02:52] VITALS: TEMP 98.4
[2017-03-14] MEDS ORDERED: LORazepam 2 MG/ML VIAL IV PUSH ONE (03:15)
[2017-03-14] MEDS ORDERED: BISACODYL 10 MG SUPP RECTAL PRN (03:15)
[2017-03-14] MEDS ORDERED: ACETAMINOPHEN 325 MG TAB PO PRN (03:15)
[2017-03-14] MEDS ORDERED: ONDANSETRON HCL 4 MG/2 ML VIAL IVP PRN (03:15)
[2017-03-14] MEDS ORDERED: SODIUM CHLORIDE 0.9% FLUSH 10 ML FLUSH IV FLUSH PRN (03:15)
[2017-03-14] MEDS ORDERED: LORazepam 0.5 MG TAB PO PRN (03:15)
--- NOTE | 2017-03-14 03:41 | HHI.HP ---
[facility] Gerald Martino MD Admission Diagnosis UTI, Prerenal Azotemia Diagnoses: (1) UTI (urinary tract infection) Diagnosis: Principal (2) Renal insufficiency Diagnosis: Principal (3) Dysphagia Diagnosis: Principal (4) Dementia Diagnosis: Principal Travel History International Travel<30 Days: No Contact w/Intl Traveler <30 Da: No Traveled to Known Affected Are: No History of Present Illness This is a 76-year-old male with a PMH of Parkinson's Dementia, Recurrent UTI and h/o CVA who was brought to the ER by /Daughter secondary to increased agitation and generalized weakness. Per , pt has severe dementia at baseline, requires assistance w/ ADL's but is awake and conversant at times. Per family, pt has had progressive decline. Also noted to have a cough, especially after taking PO. Family reports pt is on thickened/puree diet per Swallow Eval on last admission, however now w/ increased coughing. On arrival, BP 122/66, HR 57, O2 sat 97% on RA, Afebrile. WBC 11.3. Creatinine 1.85, previously 1.70 on 02/04/17. UA positive for UTI. S/p Rocephin in ER. Review of Systems Except as stated in HPI: all other systems reviewed are Neg ROS: Unable to obtain secondary to dementia. Past Family Social History Past Medical History PMH: Parkinson's Dementia, Recurrent UTI and h/o CVA Past Surgical History PAST SURGICAL HISTORY: Unknown Allergies: Coded Allergies: No Known Allergies (Unverified , 03/13/17) Family History PAST FAMILY HISTORY: Reviewed. No h/o DM or CAD Social History PAST SOCIAL HISTORY: Negative for alcohol, tobacco or drugs. Physical Exam Vital Signs Vital Signs Date Time Temp Pulse Resp B/P Pulse Ox O2 Delivery O2 Flow Rate FiO2 03/14/17 02:52 98.4 03/13/17 21:57 18 03/13/17 21:51 57 18 122/66 97 Physical Exam PE: GENERAL: Thin, frail, elderly white male in no acute distress, however very agitated due to dementia. HEENT: PERRLA, EOMI. No scleral icterus or conjunctival pallor. No lid lag or facial droop. CARDIOVASCULAR: Regular rate and rhythm. No obvious murmurs to auscultation. No chest tenderness to palpation. RESPIRATORY: No obvious rhonchi or wheezing. Clear to auscultation. Breath sounds equal bilaterally. GASTROINTESTINAL: Abdomen soft, non-tender, nondistended. BS normal. MUSCULOSKELETAL: Extremities without clubbing, cyanosis, or edema. No obvious deformities. NEUROLOGICAL: Awake, agitated, confused, +demented. No focal neurologic deficits. Moving both upper and lower extremities spontaneously. Laboratory Laboratory Tests Test 03/14/17 03/14/17 00:45 01:45 White Blood Count 11.3 Red Blood Count 3.88 Hemoglobin 11.5 Hematocrit 35.9 Mean Corpuscular Volume 92.6 Mean Corpuscular Hemoglobin 29.7 Mean Corpuscular Hemoglobin 32.1 Concent Red Cell Distribution Width 14.2 Platelet Count 242 Mean Platelet Volume 9.3 Neutrophils (%) (Auto) 74.8 Lymphocytes (%) (Auto) 17.0 Monocytes (%) (Auto) 6.0 Eosinophils (%) (Auto) 1.4 Basophils (%) (Auto) 0.8 Neutrophils # (Auto) 8.4 Lymphocytes # (Auto) 1.9 Monocytes # (Auto) 0.7 Eosinophils # (Auto) 0.2 Basophils # (Auto) 0.1 CBC Comment DIFF FINAL Differential Comment Sodium Level 145 Potassium Level 4.2 Chloride Level 112 Carbon Dioxide Level 26.1 Anion Gap 7 Blood Urea Nitrogen 28 Creatinine 1.85 Estimat Glomerular Filtration 36 Rate Random Glucose 76 Calcium Level 9.4 Total Bilirubin 0.2 Aspartate Amino Transf 18 (AST/SGOT) Alanine Aminotransferase 18 (ALT/SGPT) Alkaline Phosphatase 89 Total Protein 7.3 Albumin 3.1 Urine Color YELLOW Urine Turbidity HAZY Urine pH 6.5 Urine Specific [place] 1.014 Urine Protein TRACE Urine Glucose (UA) NEG Urine Ketones NEG Urine Occult Blood SMALL Urine Nitrite POS Urine Bilirubin NEG Urine Urobilinogen LESS THAN 2.0 Urine Leukocyte Esterase LARGE Urine RBC 11 Urine WBC 51 Urine WBC Clumps MOD Urine Squamous Epithelial <1 Cells Urine Bacteria MANY Urine Mucus FEW Microscopic Urinalysis Comment CATH-CULTURE IND Date/Time Procedure Status Source Growth 03/14/17 01:45 Urine Culture Received Urine Catheterized Urine Pending Result Diagram: 03/14/17 0045 03/14/17 0045 Assessment and Plan Problem List: (1) UTI (urinary tract infection) ICD Code: N39.0 Status: Acute (2) Renal insufficiency ICD Code: N28.9 Status: Acute (3) Dementia ICD Code: F03.90 Status: Acute (4) Dysphagia ICD Code: R13.10 Status: Acute Assessment and Plan A/P: 1. UTI: U/a w/ significant UTI, +incontinence per . Follow up Urine Culture. S/p Rocephin IV in ER, will continue w/ IV Abx, IVF for hydration. 2. Renal Insufficiency: Acute on Chronic. Creatinine 1.85, previously 1.70 on 02/04/17. IVF, repeat labs 3. Dementia: w/ agitation, likely compounded by UTI. Ativan prn for agitation. Resume home medications. 3. Dysphagia: On thickened/puree diet, family notes cough after taking PO. Check CXR for possible aspiration. Swallow eval for further recommendations. 4. DVT Prophylaxis: SCD/Teds. 5. Social work for d/c planning as needed. 6. Case discussed w/ ER physician at length. Problem Qualifiers (1) UTI (urinary tract infection): Qualified Code: N30.01 - Acute cystitis with hematuria Jacquelin Mae MD Mar 14, 2017 03:41
[2017-03-14 03:46] VITALS: BP 140/58; PULSE 75; RESP 14; O2SAT 100
--- NOTE | 2017-03-14 05:50 | RADRPT ---
EXAM DATE/TIME: 03/14/2017 05:37 [facility] COMPARISON: CHEST SINGLE AP, January 30, 2017, 22:04. INDICATIONS : Shortness of breath. MEDICAL HISTORY : None. SURGICAL HISTORY : ENCOUNTER: Initial ACUITY: 1 day PAIN SCORE: Non-responsive. LOCATION: Bilateral chest FINDINGS: A single view of the chest demonstrates the lungs to be symmetrically aerated without evidence of mas s, infiltrate or effusion. The cardiomediastinal contours are unremarkable. Osseous structures are intact. CONCLUSION: No acute disease. Ross Nguyen Jr., MD on March 14, 2017 at 5:48 Board Certified Radiologist. This report was verified electronically.
[2017-03-14] MEDS: LEVOTHYROXINE SODIUM 75 MCG TAB PO SCH (06:00)
[2017-03-14 07:07] VITALS: BP 100/59; PULSE 72; RESP 18; O2SAT 97
--- NOTE | 2017-03-14 07:47 | HHI.PR ---
Subjective Remarks in no acute distress. afebrile. Objective Vitals Vital Signs Date Time Temp Pulse Resp B/P Pulse Ox O2 Delivery O2 Flow Rate FiO2 03/14/17 07:07 72 18 100/59 97 Room Air 03/14/17 03:46 75 14 140/58 100 03/14/17 02:52 98.4 03/13/17 21:57 18 03/13/17 21:51 57 18 122/66 97 Result Diagram: 03/14/17 0045 03/14/17 0045 Imaging Last Impressions Chest X-Ray 03/14/17 0000 Signed Impressions: Service Date/Time: Tuesday, March 14, 2017 05:37 - CONCLUSION: No acute disease. Ross Nguyen Jr., MD Objective Remarks GENERAL: This is a well-nourished, well-developed patient, in no apparent distress. CARDIOVASCULAR: Regular rate and regular rhythm without murmurs, gallops, or rubs. RESPIRATORY: Clear to auscultation. Breath sounds equal bilaterally. No wheezes , rales, or rhonchi. GASTROINTESTINAL: Abdomen soft, non-tender, nondistended. Normal, active bowel sounds MUSCULOSKELETAL: Extremities without clubbing, cyanosis, or edema. NEURO: awake but with dementia Procedures none Medications and IVs Current Medications Sodium Chloride 2 ml 2 ml UNSCH PRN IVF FLUSH AFTER USING IV ACCESS Last administered on 03/14/17 01:20; Start 03/14/17 at 00:45; Stop 03/14/17 at 03:39 ; Status DC Sodium Chloride 1,000 ml @ 1,000 mls/hr Q1H IV Last administered on 03/14/17 01:20; Start 03/14/17 at 00:43; Stop 03/14/17 at 01:42; Status DC Ceftriaxone Sodium/Sodium Chloride (Rocephin Inj/NS Inj) 100 ml @ 200 mls/hr ONCE ONCE IV Last administered on 03/14/17 03:01; Start 03/14/17 at 02:15; Stop 03/14/17 at 02:44; Status DC Lorazepam 1 mg 1 mg ONCE ONCE IV PUSH Last administered on 03/14/17 03:45; Start 03/14/17 at 03:15; Stop 03/14/17 at 03:16; Status DC Sodium Chloride (NS 1000 ml Inj) 1,000 ml @ 100 mls/hr Q10H IV Last administered on 03/14/17t 06:12; Start 03/14/17 at 03:07 Sodium Chloride (NS Flush) 2 ml UNSCH PRN IV FLUSH FLUSH AFTER USING IV ACCESS ; Start 03/14/17 at 03:15 Sodium Chloride (NS Flush) 2 ml BID IV FLUSH ; Start 03/14/17 at 09:00 Ondansetron HCl (Zofran Inj) 4 mg Q6H PRN IVP NAUSEA OR VOMITING; Start at 03:15 Bisacodyl (Dulcolax Supp) 10 mg DAILY PRN RECTAL CONSTIPATION; Start 03/14/17 at 03:15 Acetaminophen (Tylenol) 650 mg Q6H PRN PO FEVER/PAIN SCALE 1 TO 2; Start at 03:15 Aspirin (Aspirin Chew) 81 mg DAILY CHEW ; Start 03/14/17 at 09:00 Benztropine Mesylate (Cogentin) 1 mg TID PO ; Start 03/14/17 at 09:00 Citalopram Hydrobromide (CeleXA) 20 mg DAILY PO ; Start 03/14/17 at 09:00 Lamotrigine (LaMICtal) 200 mg BID PO ; Start 03/14/17 at 09:00 Levothyroxine Sodium (Synthroid) 75 mcg DAILY@0600 PO ; Start 03/14/17 at 06:00 Lorazepam (Ativan) 0.25 mg BID PRN PO ANXIETY; Start 03/14/17 at 03:15 Pravastatin Sodium (Pravachol) 10 mg DAILY PO ; Start 03/14/17 at 09:00 Memantine (Namenda) 10 mg DAILY PO ; Start 03/14/17 at 09:00 Trihexyphenidyl HCl (Artane) 4 mg BID PO ; Start 03/14/17 at 09:00 Lorazepam (Ativan Inj) 0.5 mg Q4H PRN IV PUSH AGITATION; Start 03/14/17 at 03: 15 A/P Assessment and Plan A/P 1. UTI: U/a w/ significant UTI, +incontinence per . Follow up Urine Culture. continue with IV Abx and IV fluid. 2. Renal Insufficiency: Acute on Chronic. Creatinine 1.85, previously 1.70 on 02/04/17. IVF, repeat labs 3. Dementia: w/ agitation, likely compounded by UTI. Ativan prn for agitation. Resumed home medications. 3. Dysphagia: On thickened/puree diet, family notes cough after taking PO. Swallow eval for further recommendations. 4. DVT Prophylaxis: SCD's 5.consult PT. Jaqui Espinoza MD Mar 14, 2017 07:47
[2017-03-14] MEDS: SODIUM CHLORIDE 0.9% FLUSH 10 ML FLUSH IV FLUSH SCH ×2 (09:00→21:00)
[2017-03-14] MEDS: BENZTROPINE MESYLATE 1 MG TAB PO SCH ×3 (10:12→20:04)
[2017-03-14] MEDS: ASPIRIN 81 MG CHEW TAB CHEW SCH (10:12)
[2017-03-14] MEDS: MEMANTINE HCL 10 MG TAB PO SCH (10:12)
[2017-03-14] MEDS: TRIHEXYPHENIDYL HCL 2 MG TAB PO SCH ×2 (10:13→20:04)
[2017-03-14] MEDS: CITALOPRAM HYDROBROMIDE 20 MG TAB PO SCH (10:13)
[2017-03-14] MEDS: PRAVASTATIN SOD 10 MG TAB PO SCH (10:13)
[2017-03-14] MEDS: lamoTRIgine 100 MG TAB PO SCH ×2 (10:14→19:57)
[2017-03-14 11:20] VITALS: BP 106/64; PULSE 68; RESP 16; TEMP 97.8; O2SAT 96
[2017-03-14 15:20] VITALS: BP 90/53; PULSE 62; RESP 18; TEMP 98.7
[2017-03-14 21:36] VITALS: BP 138/84; PULSE 56; RESP 18; TEMP 97.2; O2SAT 96
[2017-03-14] MEDS: LORazepam 2 MG/ML VIAL IV PUSH PRN (22:57)
[2017-03-15 01:37] VITALS: BP 105/65; PULSE 62; RESP 19; TEMP 97.1; O2SAT 94
[2017-03-15 05:03] VITALS: BP 102/60; PULSE 59; RESP 18; TEMP 97.3; O2SAT 94
[2017-03-15] MEDS: cefTRIAXone INJ 1,000 MG in SODIUM CHLORIDE 0.9% INJ 100 ML IV SCH (05:25)
[2017-03-15 06:13] LABS: AUTOMATED NEUTROPHIL # 18.6 TH/MM3 (1.8-7.7); BASOPHIL # 0.1 TH/MM3 (0-0.2); BASOPHIL % 0.5 % (0.0-2.0); EOSINOPHIL # 0.2 TH/MM3 (0-0.4); EOSINOPHIL % 0.9 % (0.0-4.0); HEMATOCRIT 32.6 % (39.0-51.0); HEMO FLAGS DIFF FINAL; LYMPHOCYTE # 0.8 TH/MM3 (1.0-4.8); MEAN CELL VOLUME 91.6 FL (80.0-100.0); MEAN CORPUSCULAR HEMOGLOBIN 30.2 PG (27.0-34.0); MONO % 2.3 % (0.0-8.0); NEUT % 92.3 % (16.0-70.0); PLATELET COUNT 154 TH/MM3 (150-450); RED BLOOD COUNT 3.56 MIL/MM3 (4.50-5.90); RED CELL DISTRIBUTION WIDTH 14.4 % (11.6-17.2); WHITE BLOOD COUNT 20.1 TH/MM3 (4.0-11.0)
[2017-03-15 06:17] LABS: ALKALINE PHOSPHATASE 81 U/L (45-117); TOTAL BILIRUBIN ADULT 0.3 MG/DL (0.2-1.0)
[2017-03-15] MEDS: LEVOTHYROXINE SODIUM 75 MCG TAB PO SCH (06:19)
[2017-03-15 06:23] LABS: ALT (GPT) 19 U/L (12-78); ANION GAP 7 MEQ/L (5-15); AST (GOT) 31 U/L (15-37); BICARBONATE 21.9 MEQ/L (21.0-32.0); BLOOD UREA NITROGEN 27 MG/DL (7-18); CHLORIDE 117 MEQ/L (98-107); GLOMERULAR FILTRATION RATE 41 ML/MIN (>89); POTASSIUM 4.3 MEQ/L (3.5-5.1); SODIUM (NA) 146 MEQ/L (136-145)
--- NOTE | 2017-03-15 07:44 | HHI.PR ---
Subjective Remarks in no acute distress. at times restless. no fever. d/w the RN and no acute issues over night. Objective Vitals Vital Signs Date Time Temp Pulse Resp B/P Pulse Ox O2 Delivery O2 Flow Rate FiO2 03/15/17 05:03 97.3 59 18 102/60 94 03/15/17 01:37 97.1 62 19 105/65 94 03/14/17 21:36 97.2 56 18 138/84 96 03/14/17 15:20 98.7 62 18 90/53 03/14/17 11:20 97.8 68 16 106/64 96 Room Air Result Diagram: 03/15/17 0430 03/15/17 0430 Imaging Last Impressions Chest X-Ray 03/14/17 0000 Signed Impressions: Service Date/Time: Tuesday, March 14, 2017 05:37 - CONCLUSION: No acute disease. Ross Nguyen Jr., MD Objective Remarks GENERAL: This is a well-nourished, well-developed patient, in no apparent distress. CARDIOVASCULAR: Regular rate and regular rhythm without murmurs, gallops, or rubs. RESPIRATORY: Clear to auscultation. Breath sounds equal bilaterally. No wheezes , rales, or rhonchi. GASTROINTESTINAL: Abdomen soft, non-tender, nondistended. Normal, active bowel sounds MUSCULOSKELETAL: Extremities without clubbing, cyanosis, or edema. NEURO: awake but with dementia Procedures none Medications and IVs Current Medications Sodium Chloride 2 ml 2 ml UNSCH PRN IVF FLUSH AFTER USING IV ACCESS Last administered on 03/14/17 01:20; Start 03/14/17 at 00:45; Stop 03/14/17 at 03:39 ; Status DC Sodium Chloride 1,000 ml @ 1,000 mls/hr Q1H IV Last administered on 03/14/17 01:20; Start 03/14/17 at 00:43; Stop 03/14/17 at 01:42; Status DC Ceftriaxone Sodium/Sodium Chloride (Rocephin Inj/NS Inj) 100 ml @ 200 mls/hr ONCE ONCE IV Last administered on 03/14/17 03:01; Start 03/14/17 at 02:15; Stop 03/14/17 at 02:44; Status DC Lorazepam 1 mg 1 mg ONCE ONCE IV PUSH Last administered on 03/14/17 03:45; Start 03/14/17 at 03:15; Stop 03/14/17 at 03:16; Status DC Sodium Chloride (NS 1000 ml Inj) 1,000 ml @ 100 mls/hr Q10H IV Last administered on 03/14/17 06:12; Start 03/14/17 at 03:07 Sodium Chloride (NS Flush) 2 ml UNSCH PRN IV FLUSH FLUSH AFTER USING IV ACCESS ; Start 03/14/17 at 03:15 Sodium Chloride (NS Flush) 2 ml BID IV FLUSH ; Start 03/14/17 at 09:00 Ondansetron HCl (Zofran Inj) 4 mg Q6H PRN IVP NAUSEA OR VOMITING; Start at 03:15 Bisacodyl (Dulcolax Supp) 10 mg DAILY PRN RECTAL CONSTIPATION; Start 03/14/17 at 03:15 Acetaminophen (Tylenol) 650 mg Q6H PRN PO FEVER/PAIN SCALE 1 TO 2; Start at 03:15 Aspirin (Aspirin Chew) 81 mg DAILY CHEW Last administered on 03/14/17 10:12; Start 03/14/17 at 09:00 Benztropine Mesylate (Cogentin) 1 mg TID PO Last administered on 03/14/17 20: 04; Start 03/14/17 at 09:00 Citalopram Hydrobromide (CeleXA) 20 mg DAILY PO Last administered on 03/14/17 10:13; Start 03/14/17 at 09:00 Lamotrigine (LaMICtal) 200 mg BID PO Last administered on 03/14/17 19:57; Start 03/14/17 at 09:00 Levothyroxine Sodium (Synthroid) 75 mcg DAILY@0600 PO Last administered on 03/15 06:19; Start 03/14/17 at 06:00 Lorazepam (Ativan) 0.25 mg BID PRN PO ANXIETY; Start 03/14/17 at 03:15 Pravastatin Sodium (Pravachol) 10 mg DAILY PO Last administered on 03/14/17 10 :13; Start 03/14/17 at 09:00 Memantine (Namenda) 10 mg DAILY PO Last administered on 03/14/17 10:12; Start 03/14/17 at 09:00 Trihexyphenidyl HCl (Artane) 4 mg BID PO Last administered on 03/14/17 20:04; Start 03/14/17 at 09:00 Lorazepam 0.5 mg 0.5 mg Q4H PRN IV PUSH AGITATION Last administered on 22:57; Start 03/14/17 at 03:15 Ceftriaxone Sodium/Sodium Chloride (Rocephin Inj/NS Inj) 100 ml @ 200 mls/hr Q24H IV Last administered on 03/15/17 05:25; Start 03/15/17 at 02:00 A/P Assessment and Plan A/P 1. UTI: U/a w/ significant UTI, +incontinence per . Follow up Urine Culture. check kidney US- continue with IV Abx and IV fluid. 2.leukocytosis- worse today; continue with Abx and repeat CBC in am- will monitor temps. 3. Renal Insufficiency: Acute on Chronic. improving- continue IV fluid and will monitor. 4. Dementia: w/ agitation, likely compounded by UTI. Ativan prn for agitation. Resumed home medications. 5. dysphagia; ST evaluation appreciated. 6. DVT Prophylaxis: SCD's 7.consulted PT. Discharge Planning case management consulted to assist with dc planning to SNF. d/w the family at the bedside. Jaqui Espinoza MD Mar 15, 2017 07:44
[2017-03-15 08:30] VITALS: BP 104/50; PULSE 54; RESP 18; TEMP 97.8
[2017-03-15] MEDS: SODIUM CHLORIDE 0.9% FLUSH 10 ML FLUSH IV FLUSH SCH ×2 (08:32→21:10)
[2017-03-15] MEDS: MEMANTINE HCL 10 MG TAB PO SCH (08:32)
[2017-03-15] MEDS: TRIHEXYPHENIDYL HCL 2 MG TAB PO SCH ×2 (08:32→21:10)
[2017-03-15] MEDS: ASPIRIN 81 MG CHEW TAB CHEW SCH (08:32)
[2017-03-15] MEDS: CITALOPRAM HYDROBROMIDE 20 MG TAB PO SCH (08:32)
[2017-03-15] MEDS: lamoTRIgine 100 MG TAB PO SCH ×2 (08:32→21:10)
[2017-03-15] MEDS: PRAVASTATIN SOD 10 MG TAB PO SCH (08:32)
[2017-03-15] MEDS: BENZTROPINE MESYLATE 1 MG TAB PO SCH ×3 (08:32→18:45)
[2017-03-15] MEDS: LORazepam 2 MG/ML VIAL IV PUSH PRN ×2 (11:22→21:11)
[2017-03-15 16:00] VITALS: BP 119/60; PULSE 46; RESP 18; TEMP 97.5
[2017-03-15 20:39] VITALS: BP 121/56; PULSE 57; RESP 16; TEMP 97.6; O2SAT 95
[2017-03-15] MEDS: DEXT 5%-NACL 0.9% 1000 ML INJ 1,000 ML IV SCH (21:10)
--- NOTE | 2017-03-15 21:46 | RADRPT ---
EXAM DATE/TIME: 03/15/2017 19:52 [facility] COMPARISON: No previous studies available for comparison. INDICATIONS : Increased BUN and Creatinine. MEDICAL HISTORY : Alzheimer's Dementia. Cerebrovascular accident. SURGICAL HISTORY : None. ENCOUNTER: Initial ACUITY: 1 day PAIN SCORE: 0/10 LOCATION: Bilateral flank MEASUREMENTS: RIGHT KIDNEY: 8.5 x 4.9 x 4.9 cm LEFT KIDNEY: 9.3 x 3.9 x 5.0 cm FINDINGS: RIGHT KIDNEY: Renal cortex is normal in thickness and echotexture. No hydronephrosis, stone, or mass. LEFT KIDNEY: Renal cortex is normal in thickness and echotexture. No hydronephrosis, stone, or mass. 1.3 cm simp le cyst in the upper pole BLADDER: Moderate distention of the urinary bladder. There is layering homogeneously echogenic material withi n the lumen. CONCLUSION: 1. Negative renal ultrasound other than left simple cyst. 2. Echogenic layering material within the urinary bladder. Ross Giron MD on March 15, 2017 at 21:42 Board Certified Radiologist. This report was verified electronically.
[2017-03-16] VITALS (8 sets, daily range): BP systolic 110–153; BP diastolic 53–67; PULSE 50–80; RESP 18–20; TEMP 97.4–97.9; O2SAT 96–98
[2017-03-16] MEDS: cefTRIAXone INJ 1,000 MG in SODIUM CHLORIDE 0.9% INJ 100 ML IV SCH (02:29)
[2017-03-16] MEDS: LEVOTHYROXINE SODIUM 75 MCG TAB PO SCH (05:18)
[2017-03-16 07:08] LABS: AUTOMATED NEUTROPHIL # 5.3 TH/MM3 (1.8-7.7); BASOPHIL # 0.1 TH/MM3 (0-0.2); BASOPHIL % 0.9 % (0.0-2.0); EOSINOPHIL # 0.2 TH/MM3 (0-0.4); EOSINOPHIL % 2.7 % (0.0-4.0); HEMATOCRIT 32.2 % (39.0-51.0); HEMO FLAGS DIFF FINAL; LYMPH % 17.9 % (9.0-44.0); LYMPHOCYTE # 1.4 TH/MM3 (1.0-4.8); MEAN CELL VOLUME 91.6 FL (80.0-100.0); MEAN CORPUSCULAR HEMOGLOBIN 30.9 PG (27.0-34.0); MEAN CORPUSCULAR HGB CONC 33.8 % (32.0-36.0); MONO % 9.1 % (0.0-8.0); NEUT % 69.4 % (16.0-70.0); PLATELET COUNT 186 TH/MM3 (150-450); RED BLOOD COUNT 3.52 MIL/MM3 (4.50-5.90); RED CELL DISTRIBUTION WIDTH 14.5 % (11.6-17.2); WHITE BLOOD COUNT 7.7 TH/MM3 (4.0-11.0)
[2017-03-16] MEDS: TRIHEXYPHENIDYL HCL 2 MG TAB PO SCH ×2 (09:16→21:07)
[2017-03-16] MEDS: ASPIRIN 81 MG CHEW TAB CHEW SCH (09:16)
[2017-03-16] MEDS: CITALOPRAM HYDROBROMIDE 20 MG TAB PO SCH (09:17)
[2017-03-16] MEDS: MEMANTINE HCL 10 MG TAB PO SCH (09:17)
[2017-03-16] MEDS: BENZTROPINE MESYLATE 1 MG TAB PO SCH ×3 (09:17→18:16)
[2017-03-16] MEDS: lamoTRIgine 100 MG TAB PO SCH ×2 (09:17→21:06)
[2017-03-16] MEDS: PRAVASTATIN SOD 10 MG TAB PO SCH (09:17)
--- NOTE | 2017-03-16 09:18 | HHI.PR ---
Subjective Remarks in no acute distress. baseline confusion. noted that his blood sugar was low over night. d/w the RN and no other acute issues over night. Objective Vitals Vital Signs Date Time Temp Pulse Resp B/P Pulse Ox O2 Delivery O2 Flow Rate FiO2 03/16/17 08:00 50 03/16/17 07:55 97.7 147/65 03/16/17 04:26 97.9 61 18 153/67 97 03/16/17 00:04 97.6 56 20 110/53 98 03/15/17 20:39 97.6 57 16 121/56 95 03/15/17 16:00 97.5 46 18 119/60 Result Diagram: 03/16/17 0648 03/15/17 0430 Imaging Last Impressions Renal Ultrasound 03/15/17 0000 Signed Impressions: Service Date/Time: Wednesday, March 15, 2017 19:52 - CONCLUSION: 1. Negative renal ultrasound other than left simple cyst. 2. Echogenic layering material within the urinary bladder. Ross Giron MD Chest X-Ray 03/14/17 0000 Signed Impressions: Service Date/Time: Tuesday, March 14, 2017 05:37 - CONCLUSION: No acute disease. Ross Nguyen Jr., MD Objective Remarks GENERAL: This is a well-nourished, well-developed patient, in no apparent distress. CARDIOVASCULAR: Regular rate and regular rhythm without murmurs, gallops, or rubs. RESPIRATORY: Clear to auscultation. Breath sounds equal bilaterally. No wheezes , rales, or rhonchi. GASTROINTESTINAL: Abdomen soft, non-tender, nondistended. Normal, active bowel sounds MUSCULOSKELETAL: Extremities without clubbing, cyanosis, or edema. NEURO: awake but with dementia Procedures none Medications and IVs Current Medications Sodium Chloride 2 ml 2 ml UNSCH PRN IVF FLUSH AFTER USING IV ACCESS Last administered on 03/14/17 01:20; Start 03/14/17 at 00:45; Stop 03/14/17 at 03:39 ; Status DC Sodium Chloride 1,000 ml @ 1,000 mls/hr Q1H IV Last administered on 03/14/17 01:20; Start 03/14/17 at 00:43; Stop 03/14/17 at 01:42; Status DC Ceftriaxone Sodium/Sodium Chloride (Rocephin Inj/NS Inj) 100 ml @ 200 mls/hr ONCE ONCE IV Last administered on 03/14/17 03:01; Start 03/14/17 at 02:15; Stop 03/14/17 at 02:44; Status DC Lorazepam 1 mg 1 mg ONCE ONCE IV PUSH Last administered on 03/14/17 03:45; Start 03/14/17 at 03:15; Stop 03/14/17 at 03:16; Status DC Sodium Chloride (NS 1000 ml Inj) 1,000 ml @ 100 mls/hr Q10H IV Last administered on 03/14/17 06:12; Start 03/14/17 at 03:07; Stop 03/15/17 at 18:30 ; Status DC Sodium Chloride (NS Flush) 2 ml UNSCH PRN IV FLUSH FLUSH AFTER USING IV ACCESS ; Start 03/14/17 at 03:15 Sodium Chloride (NS Flush) 2 ml BID IV FLUSH Last administered on 03/15/17 21: 10; Start 03/14/17 at 09:00 Ondansetron HCl (Zofran Inj) 4 mg Q6H PRN IVP NAUSEA OR VOMITING; Start at 03:15 Bisacodyl (Dulcolax Supp) 10 mg DAILY PRN RECTAL CONSTIPATION; Start 03/14/17 at 03:15 Acetaminophen (Tylenol) 650 mg Q6H PRN PO FEVER/PAIN SCALE 1 TO 2; Start at 03:15 Aspirin (Aspirin Chew) 81 mg DAILY CHEW Last administered on 03/15/17 08:32; Start 03/14/17 at 09:00 Benztropine Mesylate (Cogentin) 1 mg TID PO Last administered on 03/15/17 18: 45; Start 03/14/17 at 09:00 Citalopram Hydrobromide (CeleXA) 20 mg DAILY PO Last administered on 03/15/17 08:32; Start 03/14/17 at 09:00 Lamotrigine (LaMICtal) 200 mg BID PO Last administered on 03/15/17 21:10; Start 03/14/17 at 09:00 Levothyroxine Sodium (Synthroid) 75 mcg DAILY@0600 PO Last administered on 03/16 05:18; Start 03/14/17 at 06:00 Lorazepam (Ativan) 0.25 mg BID PRN PO ANXIETY; Start 03/14/17 at 03:15 Pravastatin Sodium (Pravachol) 10 mg DAILY PO Last administered on 03/15/17 08 :32; Start 03/14/17 at 09:00 Memantine (Namenda) 10 mg DAILY PO Last administered on 03/15/17 08:32; Start 03/14/17 at 09:00 Trihexyphenidyl HCl (Artane) 4 mg BID PO Last administered on 03/15/17 21:10; Start 03/14/17 at 09:00 Lorazepam 0.5 mg 0.5 mg Q4H PRN IV PUSH AGITATION Last administered on 21:11; Start 03/14/17 at 03:15 Ceftriaxone Sodium 1000 mg/ Sodium Chloride 100 ml @ 200 mls/hr Q24H IV Last administered on 03/16/17 02:29; Start 03/15/17 at 02:00 Dextrose/Sodium Chloride (D5W-NS 1000 ml Inj) 1,000 ml @ 75 mls/hr [id number] IV Last administered on 03/15/17 21:10; Start 03/15/17 at 19:00 A/P Assessment and Plan A/P 1. UTI: U/a w/ significant UTI, +incontinence per . Urine Culture with enterococcus. renal US ;Negative renal ultrasound other than left simple cyst with Echogenic layering material within the urinary bladder. 2.leukocytosis- resolved. 3. Renal Insufficiency: Acute on Chronic. improving- continue IV fluid and will monitor. 4. Dementia: w/ agitation, likely compounded by UTI. Ativan prn for agitation. Resumed home medications. 5. dysphagia; ST evaluation appreciated; recommended puree diet. checkering machine adjuster assessment noted. 6.hypoglycemia; continue with D5W and monitor the accu-checks. 7. DVT Prophylaxis: SCD's 8.consulted PT. Discharge Planning case management consulted to assist with dc planning to SNF. previously d/w the family at the bedside. expected to be discharged within the next 24-48 hrs if stable. Jaqui Espinoza MD Mar 16, 2017 09:18
[2017-03-16] MEDS: SODIUM CHLORIDE 0.9% FLUSH 10 ML FLUSH IV FLUSH SCH ×2 (09:29→21:00)
[2017-03-16] MEDS: DEXT 5%-NACL 0.9% 1000 ML INJ 1,000 ML IV SCH ×2 (10:17→21:07)
[2017-03-17] MEDS: LORazepam 2 MG/ML VIAL IV PUSH PRN ×2 (01:02→21:35)
[2017-03-17] MEDS: DEXT 5%-NACL 0.9% 1000 ML INJ 1,000 ML IV SCH (01:02)
[2017-03-17] MEDS: cefTRIAXone INJ 1,000 MG in SODIUM CHLORIDE 0.9% INJ 100 ML IV SCH (01:05)
[2017-03-17] MEDS: LEVOTHYROXINE SODIUM 75 MCG TAB PO SCH (06:00)
[2017-03-17 06:08] VITALS: BP 115/89; PULSE 63; RESP 18
[2017-03-17] MEDS ORDERED: LORA-373 PO ×2 (07:43)
--- NOTE | 2017-03-17 07:52 | HHI.PR ---
Subjective Remarks in no acute distress. looks comfortable. no fever. no further drop in blood sugar. d/w the RN and no acute issues over night. Objective Vitals Vital Signs Date Time Temp Pulse Resp B/P Pulse Ox O2 Delivery O2 Flow Rate FiO2 03/17/17 06:08 63 18 115/89 03/16/17 23:39 68 20 149/66 03/16/17 20:48 97.6 69 20 129/64 03/16/17 16:06 97.5 80 18 150/65 03/16/17 12:30 97.4 52 18 136/66 96 03/16/17 08:00 50 03/16/17 08:00 20 98 03/16/17 07:55 97.7 147/65 I/O 03/16/17 03/16/17 03/16/17 03/17/17 03/17/17 03/17/17 07:00 15:00 23:00 07:00 15:00 23:00 Intake Total 675 ml Balance 675 ml Intake Oral 200 ml Oral Supplement 250 ml IV Total 225 ml # Voids 1 2 # Bowel Movements 1 Result Diagram: 03/16/17 0648 03/15/17 0430 Imaging Last Impressions Renal Ultrasound 03/15/17 0000 Signed Impressions: Service Date/Time: Wednesday, March 15, 2017 19:52 - CONCLUSION: 1. Negative renal ultrasound other than left simple cyst. 2. Echogenic layering material within the urinary bladder. Ross Giron MD Chest X-Ray 03/14/17 0000 Signed Impressions: Service Date/Time: Tuesday, March 14, 2017 05:37 - CONCLUSION: No acute disease. Ross Nguyen Jr., MD Objective Remarks GENERAL: This is a well-nourished, well-developed patient, in no apparent distress. CARDIOVASCULAR: Regular rate and regular rhythm without murmurs, gallops, or rubs. RESPIRATORY: Clear to auscultation. Breath sounds equal bilaterally. No wheezes , rales, or rhonchi. GASTROINTESTINAL: Abdomen soft, non-tender, nondistended. Normal, active bowel sounds MUSCULOSKELETAL: Extremities without clubbing, cyanosis, or edema. NEURO: awake but with dementia Procedures none Medications and IVs Current Medications Sodium Chloride 2 ml 2 ml UNSCH PRN IVF FLUSH AFTER USING IV ACCESS Last administered on 03/14/17 01:20; Start 03/14/17 at 00:45; Stop 03/14/17 at 03:39 ; Status DC Sodium Chloride 1,000 ml @ 1,000 mls/hr Q1H IV Last administered on 03/14/17 01:20; Start 03/14/17 at 00:43; Stop 03/14/17 at 01:42; Status DC Ceftriaxone Sodium/Sodium Chloride (Rocephin Inj/NS Inj) 100 ml @ 200 mls/hr ONCE ONCE IV Last administered on 03/14/17 03:01; Start 03/14/17 at 02:15; Stop 03/14/17 at 02:44; Status DC Lorazepam 1 mg 1 mg ONCE ONCE IV PUSH Last administered on 03/14/17 03:45; Start 03/14/17 at 03:15; Stop 03/14/17 at 03:16; Status DC Sodium Chloride (NS 1000 ml Inj) 1,000 ml @ 100 mls/hr Q10H IV Last administered on 03/14/17 06:12; Start 03/14/17 at 03:07; Stop 03/15/17 at 18:30 ; Status DC Sodium Chloride (NS Flush) 2 ml UNSCH PRN IV FLUSH FLUSH AFTER USING IV ACCESS ; Start 03/14/17 at 03:15 Sodium Chloride (NS Flush) 2 ml BID IV FLUSH Last administered on 03/16/17 09: 29; Start 03/14/17 at 09:00 Ondansetron HCl (Zofran Inj) 4 mg Q6H PRN IVP NAUSEA OR VOMITING; Start at 03:15 Bisacodyl (Dulcolax Supp) 10 mg DAILY PRN RECTAL CONSTIPATION; Start 03/14/17 at 03:15 Acetaminophen (Tylenol) 650 mg Q6H PRN PO FEVER/PAIN SCALE 1 TO 2; Start at 03:15 Aspirin (Aspirin Chew) 81 mg DAILY CHEW Last administered on 03/16/17 09:16; Start 03/14/17 at 09:00 Benztropine Mesylate (Cogentin) 1 mg TID PO Last administered on 03/16/17 18: 16; Start 03/14/17 at 09:00 Citalopram Hydrobromide (CeleXA) 20 mg DAILY PO Last administered on 03/16/17 09:17; Start 03/14/17 at 09:00 Lamotrigine (LaMICtal) 200 mg BID PO Last administered on 03/16/17 21:06; Start 03/14/17 at 09:00 Levothyroxine Sodium (Synthroid) 75 mcg DAILY@0600 PO Last administered on 03/17 06:00; Start 03/14/17 at 06:00 Lorazepam (Ativan) 0.25 mg BID PRN PO ANXIETY; Start 03/14/17 at 03:15 Pravastatin Sodium (Pravachol) 10 mg DAILY PO Last administered on 03/16/17 09 :17; Start 03/14/17 at 09:00 Memantine (Namenda) 10 mg DAILY PO Last administered on 03/16/17 09:17; Start 03/14/17 at 09:00 Trihexyphenidyl HCl (Artane) 4 mg BID PO Last administered on 03/16/17 21:07; Start 03/14/17 at 09:00 Lorazepam 0.5 mg 0.5 mg Q4H PRN IV PUSH AGITATION Last administered on 01:02; Start 03/14/17 at 03:15 Ceftriaxone Sodium 1000 mg/ Sodium Chloride 100 ml @ 200 mls/hr Q24H IV Last administered on 03/17/17 01:05; Start 03/15/17 at 02:00 Dextrose/Sodium Chloride (D5W-NS 1000 ml Inj) 1,000 ml @ 75 mls/hr [id number] IV Last administered on 03/17/17 01:02; Start 03/15/17 at 19:00 A/P Assessment and Plan A/P 1. UTI: U/a w/ significant UTI, +incontinence per . Urine Culture with enterococcus. renal US ;Negative renal ultrasound other than left simple cyst with Echogenic layering material within the urinary bladder. will switch to po abx upon discharge. might need urology evaluation as outpatient- will defer to PCP. 2.leukocytosis- resolved. 3. Renal Insufficiency: Acute on Chronic. improving- stable. 4. Dementia: w/ agitation, likely compounded by UTI. Ativan prn for agitation. Resumed home medications. 5. dysphagia; ST evaluation appreciated; recommended puree diet. tail board man assessment noted. 6.hypoglycemia;resolved.will monitor the accu-checks. 7. DVT Prophylaxis: SCD's 8.consulted PT. Discharge Planning case management consulted to assist with dc planning to SNF. previously d/w the family at the bedside. possible dc to SNF later today if no further hypoglycemic episodes. see med list. f/u; pcp. d/w the RN and case management. time spent 32 min. Jaqui Espinoza MD Mar 17, 2017 07:52
--- NOTE | 2017-03-17 07:53 | HHI.DCPOC ---
Discharge Care Plan Diagnosis: (1) UTI (urinary tract infection) (2) Hypoglycemia Your Health Problems Are: Urinary Difficulties Fluctuating Blood Sugars Goals to Promote Your Health * To prevent worsening of your condition and complications * To maintain your health at the optimal level Directions to Meet Your Goals Take your medications as prescribed Follow your dietary instruction Follow activity as directed Keep your appointments as scheduled Take your immunizations and boosters as scheduled If your symptoms worsen call your PCP, if no PCP go to Urgent Care Center or Emergency Room Smoking is Dangerous to Your Health. Avoid second hand smoke Call the 24-hour hour crisis hotline for domestic abuse at Jaqui Espinoza MD Mar 17, 2017 07:53
--- NOTE | 2017-03-17 07:54 | HHI.DS ---
Discharge Summary Admission Date Mar 14, 2017 at 03:05 Discharge Date: Mar 17, 2017 Admitting Diagnosis UTI, Prerenal Azotemia (1) UTI (urinary tract infection) ICD Code: N39.0 Diagnosis: Principal (2) Renal insufficiency ICD Code: N28.9 Diagnosis: Secondary (3) Dementia ICD Code: F03.90 Diagnosis: Secondary (4) Dysphagia ICD Code: R13.10 Diagnosis: Principal (5) Hypoglycemia ICD Code: E16.2 Diagnosis: Principal Procedures none Brief History - From Admission This is a 76-year-old male with a PMH of Parkinson's Dementia, Recurrent UTI and h/o CVA who was brought to the ER by /Daughter secondary to increased agitation and generalized weakness. Per , pt has severe dementia at baseline, requires assistance w/ ADL's but is awake and conversant at times. Per family, pt has had progressive decline. Also noted to have a cough, especially after taking PO. Family reports pt is on thickened/puree diet per Swallow Eval on last admission, however now w/ increased coughing. On arrival, BP 122/66, HR 57, O2 sat 97% on RA, Afebrile. WBC 11.3. Creatinine 1.85, previously 1.70 on 02/04/17. UA positive for UTI. S/p Rocephin in ER. CBC/BMP: 03/16/17 0648 03/15/17 0430 Significant Findings Laboratory Tests Test 03/15/17 03/16/17 04:30 06:48 White Blood Count 20.1 TH/MM3 (4.0-11.0) Red Blood Count 3.56 MIL/MM3 3.52 MIL/MM3 (4.50-5.90) (4.50-5.90) Hemoglobin 10.8 GM/DL 10.9 GM/DL (13.0-17.0) (13.0-17.0) Hematocrit 32.6 % 32.2 % (39.0-51.0) (39.0-51.0) Neutrophils (%) (Auto) 92.3 % (16.0-70.0) Lymphocytes (%) (Auto) 4.0 % (9.0-44.0) Neutrophils # (Auto) 18.6 TH/MM3 (1.8-7.7) Lymphocytes # (Auto) 0.8 TH/MM3 (1.0-4.8) Sodium Level 146 MEQ/L (136-145) Chloride Level 117 MEQ/L (98-107) Blood Urea Nitrogen 27 MG/DL (7-18) Creatinine 1.64 MG/DL (0.60-1.30) Estimat Glomerular Filtration 41 ML/MIN (>89) Rate Random Glucose 53 MG/DL (74-106) Albumin 2.6 GM/DL (3.4-5.0) Monocytes (%) (Auto) 9.1 % (0.0-8.0) Imaging Last Impressions Renal Ultrasound 03/15/17 0000 Signed Impressions: Service Date/Time: Wednesday, March 15, 2017 19:52 - CONCLUSION: 1. Negative renal ultrasound other than left simple cyst. 2. Echogenic layering material within the urinary bladder. Ross Giron MD Chest X-Ray 03/14/17 0000 Signed Impressions: Service Date/Time: Tuesday, March 14, 2017 05:37 - CONCLUSION: No acute disease. Ross Nguyen Jr., MD PE at Discharge GENERAL: This is a well-nourished, well-developed patient, in no apparent distress. CARDIOVASCULAR: Regular rate and regular rhythm without murmurs, gallops, or rubs. RESPIRATORY: Clear to auscultation. Breath sounds equal bilaterally. No wheezes , rales, or rhonchi. GASTROINTESTINAL: Abdomen soft, non-tender, nondistended. Normal, active bowel sounds MUSCULOSKELETAL: Extremities without clubbing, cyanosis, or edema. NEURO: awake but with dementia Hospital Course 1. UTI: U/a w/ significant UTI, +incontinence per . Urine Culture with enterococcus. renal US ;Negative renal ultrasound other than left simple cyst with Echogenic layering material within the urinary bladder. will switch to po abx upon discharge. might need urology evaluation as outpatient- will defer to PCP. 2.leukocytosis- resolved. 3. Renal Insufficiency: Acute on Chronic. improving- stable. 4. Dementia: w/ agitation, likely compounded by UTI. Ativan prn for agitation. Resumed home medications. 5. dysphagia; ST evaluation appreciated; recommended puree diet. 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 6.hypoglycemia;resolved.will monitor the accu-checks. 7. DVT Prophylaxis: SCD's 8.consulted PT. Pt Condition on Discharge: Fair Discharge Disposition: Discharge to SNF Discharge Time: > 30 minutes Discharge Instructions DIET: Follow Instructions for: Heart Healthy Diet Activities you can perform: Regular-No Restrictions Follow up Referrals: PCP Follow-up New Medications: Amoxicillin (Amoxicillin) 875 Mg Tab 875 MG PO BID Infection Days 5 Ref 0 TAB Continued Medications: Aspirin (Aspirin Low Dose) 81 Mg Chew 81 MG CHEW DAILY Ref 0 TAB Benztropine (Benztropine) 1 Mg Tab 1 MG PO TID #60 Ref 0 TAB Citalopram (Citalopram) 20 Mg Tab 20 MG PO DAILY Control Depression #30 Ref 0 TAB Hydroxyzine HCl (Hydroxyzine HCl) 10 Mg Tab 10 MG PO HS PRN SLEEP Ref 0 TAB Lamotrigine (Lamotrigine) 200 Mg Tab 200 MG PO BID Control Seizures #60 Ref 0 TAB Levothyroxine (Levothyroxine) 75 Mcg Tab 75 MCG PO DAILY Thyroid #30 Ref 0 TAB Lorazepam (Lorazepam) 0.5 Mg Tab 0.1 MG PO BID PRN ANXIETY #10 Ref 0 TAB (This prescription has been renewed) Lorazepam (Lorazepam) 0.5 Mg Tab 0.15 MG PO HS PRN ANXIETY AND/OR INSOMNIA #10 Ref 0 TAB (This prescription has been renewed) Lovastatin (Lovastatin) 20 Mg Tab 10 MG PO DAILY Cholesterol Management #30 Ref 0 TAB Memantine (Memantine) 10 Mg Tab 10 MG PO DAILY Alzheimer's Dementia Ref 0 TAB Ranitidine (Ranitidine) 150 Mg Cap 150 MG PO DAILY #30 Ref 0 CAP Trihexyphenidyl (Trihexyphenidyl) 2 Mg Tab 4 MG PO BID Parkinson Disease Mgmt #60 Ref 0 TAB Discontinued Medications: Ciprofloxacin (Cipro) 250 Mg Tab 250 MG PO BID Infection Days 3 Ref 0 TAB Jaqui Espinoza MD Mar 17, 2017 07:54
[2017-03-17 08:24] VITALS: BP 147/68; PULSE 78; RESP 18; TEMP 98.8; O2SAT 97
[2017-03-17] MEDS: SODIUM CHLORIDE 0.9% FLUSH 10 ML FLUSH IV FLUSH SCH ×2 (09:00→21:31)
[2017-03-17] MEDS: MEMANTINE HCL 10 MG TAB PO SCH (09:11)
[2017-03-17] MEDS: lamoTRIgine 100 MG TAB PO SCH ×2 (09:11→21:31)
[2017-03-17] MEDS: TRIHEXYPHENIDYL HCL 2 MG TAB PO SCH ×2 (09:11→21:31)
[2017-03-17] MEDS: BENZTROPINE MESYLATE 1 MG TAB PO SCH ×4 (09:11→18:20)
[2017-03-17] MEDS: PRAVASTATIN SOD 10 MG TAB PO SCH (09:11)
[2017-03-17] MEDS: ASPIRIN 81 MG CHEW TAB CHEW SCH (09:11)
[2017-03-17] MEDS: CITALOPRAM HYDROBROMIDE 20 MG TAB PO SCH (09:11)
[2017-03-17 12:00] VITALS: BP 150/70; PULSE 77; RESP 18; TEMP 98.4; O2SAT 95
[2017-03-17] MEDS: AMOXICILLIN 875 MG TAB PO SCH ×3 (13:00→21:31)
[2017-03-17 16:15] VITALS: BP 113/92; PULSE 78; RESP 18; TEMP 98.4; O2SAT 94
[2017-03-17 21:02] VITALS: BP 161/87; PULSE 63; RESP 18; TEMP 98.6
[2017-03-17 23:45] VITALS: BP 152/70; PULSE 70; RESP 18
[2017-03-18] MEDS: LEVOTHYROXINE SODIUM 75 MCG TAB PO SCH (06:10)
[2017-03-18 07:11] VITALS: BP 139/69; PULSE 80; RESP 22; TEMP 98; O2SAT 95
--- NOTE | 2017-03-18 07:40 | HHI.PR ---
Subjective Remarks looks comfortable. no fever. d/w the RN and no acute issues over night. Objective Vitals Vital Signs Date Time Temp Pulse Resp B/P Pulse Ox O2 Delivery O2 Flow Rate FiO2 03/18/17 07:11 98.0 80 22 139/69 95 03/17/17 23:45 70 18 152/70 03/17/17 21:02 98.6 63 18 161/87 03/17/17 16:15 98.4 78 18 113/92 94 03/17/17 12:00 98.4 77 18 150/70 95 03/17/17 08:24 98.8 78 18 147/68 97 I/O 03/17/17 03/17/17 03/17/17 03/18/17 03/18/17 03/18/17 07:00 15:00 23:00 07:00 15:00 23:00 Intake Total 650 ml 221 ml Balance 650 ml 221 ml Intake Oral 200 ml 221 ml IV Total 450 ml # Voids 1 1 # Bowel Movements 1 Result Diagram: 03/16/17 0648 03/15/17 0430 Imaging Last Impressions Renal Ultrasound 03/15/17 0000 Signed Impressions: Service Date/Time: Wednesday, March 15, 2017 19:52 - CONCLUSION: 1. Negative renal ultrasound other than left simple cyst. 2. Echogenic layering material within the urinary bladder. Ross Giron MD Chest X-Ray 03/14/17 0000 Signed Impressions: Service Date/Time: Tuesday, March 14, 2017 05:37 - CONCLUSION: No acute disease. Ross Nguyen Jr., MD Objective Remarks GENERAL: This is a well-nourished, well-developed patient, in no apparent distress. CARDIOVASCULAR: Regular rate and regular rhythm without murmurs, gallops, or rubs. RESPIRATORY: Clear to auscultation. Breath sounds equal bilaterally. No wheezes , rales, or rhonchi. GASTROINTESTINAL: Abdomen soft, non-tender, nondistended. Normal, active bowel sounds MUSCULOSKELETAL: Extremities without clubbing, cyanosis, or edema. NEURO: awake but with dementia Procedures none Medications and IVs Current Medications Sodium Chloride 2 ml 2 ml UNSCH PRN IVF FLUSH AFTER USING IV ACCESS Last administered on 03/14/17t 01:20; Start 03/14/17 at 00:45; Stop 03/14/17 at 03:39 ; Status DC Sodium Chloride 1,000 ml @ 1,000 mls/hr Q1H IV Last administered on 03/14/17 01:20; Start 03/14/17 at 00:43; Stop 03/14/17 at 01:42; Status DC Ceftriaxone Sodium/Sodium Chloride (Rocephin Inj/NS Inj) 100 ml @ 200 mls/hr ONCE ONCE IV Last administered on 03/14/17 03:01; Start 03/14/17 at 02:15; Stop 03/14/17 at 02:44; Status DC Lorazepam 1 mg 1 mg ONCE ONCE IV PUSH Last administered on 03/14/17 03:45; Start 03/14/17 at 03:15; Stop 03/14/17 at 03:16; Status DC Sodium Chloride (NS 1000 ml Inj) 1,000 ml @ 100 mls/hr Q10H IV Last administered on 03/14/17 06:12; Start 03/14/17 at 03:07; Stop 03/15/17 at 18:30 ; Status DC Sodium Chloride (NS Flush) 2 ml UNSCH PRN IV FLUSH FLUSH AFTER USING IV ACCESS Last administered on 03/17/17 21:35; Start 03/14/17 at 03:15 Sodium Chloride (NS Flush) 2 ml BID IV FLUSH Last administered on 03/17/17 21: 31; Start 03/14/17 at 09:00 Ondansetron HCl (Zofran Inj) 4 mg Q6H PRN IVP NAUSEA OR VOMITING; Start at 03:15 Bisacodyl (Dulcolax Supp) 10 mg DAILY PRN RECTAL CONSTIPATION; Start 03/14/17 at 03:15 Acetaminophen (Tylenol) 650 mg Q6H PRN PO FEVER/PAIN SCALE 1 TO 2; Start at 03:15 Aspirin (Aspirin Chew) 81 mg DAILY CHEW Last administered on 03/17/17 09:11; Start 03/14/17 at 09:00 Benztropine Mesylate (Cogentin) 1 mg TID PO Last administered on 03/17/17 18: 20; Start 03/14/17 at 09:00 Citalopram Hydrobromide (CeleXA) 20 mg DAILY PO Last administered on 03/17/17 09:11; Start 03/14/17 at 09:00 Lamotrigine (LaMICtal) 200 mg BID PO Last administered on 03/17/17 21:31; Start 03/14/17 at 09:00 Levothyroxine Sodium (Synthroid) 75 mcg DAILY@0600 PO Last administered on 03/18 06:10; Start 03/14/17 at 06:00 Lorazepam (Ativan) 0.25 mg BID PRN PO ANXIETY; Start 03/14/17 at 03:15 Pravastatin Sodium (Pravachol) 10 mg DAILY PO Last administered on 03/17/17 09 :11; Start 03/14/17 at 09:00 Memantine (Namenda) 10 mg DAILY PO Last administered on 03/17/17 09:11; Start 03/14/17 at 09:00 Trihexyphenidyl HCl (Artane) 4 mg BID PO Last administered on 03/17/17 21:31; Start 03/14/17 at 09:00 Lorazepam 0.5 mg 0.5 mg Q4H PRN IV PUSH AGITATION Last administered on 21:35; Start 03/14/17 at 03:15 Ceftriaxone Sodium 1000 mg/ Sodium Chloride 100 ml @ 200 mls/hr Q24H IV Last administered on 03/17/17 01:05; Start 03/15/17 at 02:00; Stop 03/17/17 at 12:35 ; Status DC Dextrose/Sodium Chloride (D5W-NS 1000 ml Inj) 1,000 ml @ 75 mls/hr [id number] IV Last administered on 03/17/17 01:02; Start 03/15/17 at 19:00; Status Hold Amoxicillin (Trimox) 875 mg Q12HR PO Last administered on 03/17/17 21:31; Start 03/17/17 at 13:00 A/P Assessment and Plan A/P 1. UTI: U/a w/ significant UTI, +incontinence per . Urine Culture with enterococcus. renal US ;Negative renal ultrasound other than left simple cyst with Echogenic layering material within the urinary bladder. will switch to po abx upon discharge. might need urology evaluation as outpatient- will defer to PCP. 2.leukocytosis- resolved. 3. Renal Insufficiency: Acute on Chronic. improving- stable. 4. Dementia: w/ agitation, likely compounded by UTI. Ativan prn for agitation. Resumed home medications. 5. dysphagia; ST evaluation appreciated; recommended puree diet. 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 6.hypoglycemia;resolved. 7. DVT Prophylaxis: SCD's 8.consulted PT. Discharge Planning case management consulted to assist with dc planning to SNF. previously d/w the family at the bedside. dc to SNF later today . see med list. f/u; pcp. d/w the RN . time spent 32 min. Jaqui Espinoza MD Mar 18, 2017 07:40
[2017-03-18] MEDS ORDERED: CIPR250T52 PO (07:41)
[2017-03-18] MEDS: TRIHEXYPHENIDYL HCL 2 MG TAB PO SCH (10:08)
[2017-03-18] MEDS: lamoTRIgine 100 MG TAB PO SCH (10:09)
[2017-03-18] MEDS: BENZTROPINE MESYLATE 1 MG TAB PO SCH (10:09)
[2017-03-18] MEDS: PRAVASTATIN SOD 10 MG TAB PO SCH (10:09)
[2017-03-18] MEDS: ASPIRIN 81 MG CHEW TAB CHEW SCH (10:09)
[2017-03-18] MEDS: MEMANTINE HCL 10 MG TAB PO SCH (10:09)
[2017-03-18] MEDS: CITALOPRAM HYDROBROMIDE 20 MG TAB PO SCH (10:09)
[2017-03-18] MEDS: AMOXICILLIN 875 MG TAB PO SCH (10:10)
[2017-03-18] MEDS: SODIUM CHLORIDE 0.9% FLUSH 10 ML FLUSH IV FLUSH SCH (10:10)
[2017-03-18 11:47] VITALS: BP 159/76; PULSE 65; RESP 20; TEMP 98; O2SAT 95
[2017-03-18] MEDS ORDERED: LORA-373 PO ×2 (13:21)
== END 2017-03-18 18:35 ==
LOC: NEPE 21:43 → NEDA 03-14 03:05 → NEDH 03-14 06:49 → NEPHCDU 03-14 15:35
PROVIDERS: ADMIT Internal Medicine; ATTEND Internal Medicine
DX: N30.01 Acute cystitis with hematuria (principal); N18.9 Chronic kidney disease, unspecified; R13.10 Dysphagia, unspecified; G20 Parkinson's disease; R15.9 Full incontinence of feces; Z87.440 Personal history of urinary (tract) infections; G30.9 Alzheimer's disease, unspecified; Z86.73 Personal history of transient ischemic attack (TIA), and cerebral infarction without residual deficits; Z79.899 Other long term (current) drug therapy; E86.0 Dehydration; E87.0 Hyperosmolality and hypernatremia; R05 Cough; E16.2 Hypoglycemia, unspecified; B95.2 Enterococcus as the cause of diseases classified elsewhere
CPT/HCPCS: 71010; 76775; 76937; 80053; 81001; 82948; 85025; 87077; 87086; 87186; 92526; 92610; 96374; 97163; 97530; 99284; G0378; G8987; G8988; G8996; G8997; G8998; J0696; J2060; J7030; J7042